=== PATIENT | female | born 1965 | race Hispanic/Latino ===

== ENCOUNTER 2019-11-14 18:54 | Inpatient (IN) | payer SELFPAY ==
[2019-11-14] MEDS ORDERED: DIPHENHYDRAMINE 50 MG/ML VIAL ONE (21:49)
[2019-11-14] MEDS ORDERED: NA CHLORIDE 0.9% 1,000 ML ONE (21:49)
[2019-11-14] MEDS ORDERED: FAMOTIDINE 20 MG/2 ML VIAL IV ONE (21:50)
[2019-11-14 23:25] LABS: Basophils % 0.2 % (0-1.3); Hematocrit 43.3 % (36.0-45.0); Lymphocytes % 19.5 % (15.3-44.8); MPV 8.6 fL (7.6-11.3); RBC Red Blood Cell Count 5.23 M/uL (3.86-4.86)
[2019-11-14] MEDS ORDERED: ONDANSETRON 4 MG/2 ML VIAL ONE (23:30)
[2019-11-14] MEDS ORDERED: MORPHINE 4 MG/ML SYR ONE (23:30)
[2019-11-14 23:40] LABS: ALT/SGPT 32 U/L (12-78); AST/SGOT 20 U/L (15-37); Albumin 3.7 g/dL (3.4-5.0); Alkaline Phosphatase 137 U/L (45-117); BUN Blood Urea Nitrogen 11 mg/dL (7-18); Bicarbonate 32 mmol/L (21-32); Bilirubin Total 0.4 mg/dL (0.2-1.0); Glucose Level 101 mg/dL (74-106); Potassium 3.8 mmol/L (3.5-5.1); Protein, Total 8.2 g/dL (6.4-8.2); Sodium Level 141 mmol/L (136-145)
[2019-11-15] MEDS ORDERED: ACETAMINOPHEN 500 MG TAB PO PRN (03:47)
[2019-11-15] MEDS ORDERED: ONDANSETRON 4 MG/2 ML VIAL IV PRN (03:47)
[2019-11-15] MEDS ORDERED: MORPHINE 2 MG/ML SYR IV PRN (03:47)
[2019-11-15] MEDS ORDERED: NA CHLORIDE 0.9% 250 ML ONE (03:58)
[2019-11-15] MEDS ORDERED: VANCOMYCIN 1 GM/VIAL ONE (03:58)
[2019-11-15] MEDS: D5 0.45 NS 1,000 ML IV SCH ×3 (04:00→15:04)
[2019-11-15] MEDS ORDERED: VANCOMYCIN/NS 1 gm 1 GM/250 ML BAG IVPB SCH (04:00)
[2019-11-15] MEDS ORDERED: SILVER SULFADIAZINE 1% 25 GM TOP ONE (04:29)
[2019-11-15 06:26] VITALS: BMI 25.6
--- NOTE | 2019-11-15 10:38 | ER ---
Nurse's Notes [facility] Name: Laura Mix Age: 54 yrs Sex: Female : 1965 Arrival Date: 11/14/2019 Time: 18:59 Bed 18 Private MD: Diagnosis: Cellulitis of the left thigh Presentation: 11/13 19:26 Note #[id number]. ca1 19:26 Chief complaint: Patient states: Rashes and hives around neck, back and legs since 0200 ca1 in the morning. Reports trouble swallowing. Denies difficulty breathing. Coronavirus screen: Proceed with normal triage. Patient denies a cough. Patient denies shortness of breath or difficulty breathing. Patient denies measured and/or subjective temperature greater than 100.4F prior to today's visit. Patient denies travel on a cruise ship or to a country the [facility] currently lists as an affected area. Patient denies contact with known and/or suspected case of COVID-19. Ebola Screen: Patient negative for fever greater than or equal to 101.5 degrees Fahrenheit, and additional compatible Ebola Virus Disease symptoms Patient denies exposure to infectious person. Patient denies travel to an Ebola-affected area in the 21 days before illness onset. No symptoms or risks identified at this time. Initial Sepsis Screen: Does the patient meet any 2 criteria? No. Patient's initial sepsis screen is negative. Does the patient have a suspected source of infection? No. Patient's initial sepsis screen is negative. Risk Assessment: Do you want to hurt yourself or someone else? Patient reports no desire to harm self or others. Onset of symptoms was November 14, 2019 at 02:00. 19:26 Method Of Arrival: Ambulatory ca1 19:26 Acuity: GAETANO 3 ca1 Historical: - Allergies: 19:31 No Known Allergies; ca1 - Home Meds: 19:31 None [Active]; ca1 - PMHx: 19:31 None; ca1 - PSHx: 19:31 Appendectomy; ca1 - Immunization history:: Adult Immunizations up to date. - Social history:: Smoking status: Patient denies any tobacco usage or history of. Screenin:35 Abuse screen: Denies threats or abuse. Nutritional screening: No deficits noted. ea Tuberculosis screening: No symptoms or risk factors identified. Fall Risk IV access (20 points). Assessment: 22:35 General: Appears uncomfortable, Behavior is appropriate for age. Pain: Complains of ea pain in medial aspect of left thigh. Neuro: Level of Consciousness is awake, alert, obeys commands, Oriented to person, place, time, situation. Respiratory: Airway is patent Respiratory effort is even, unlabored, Respiratory pattern is regular, symmetrical. Derm: Rash noted that is macular, on medial aspect of left thigh. 23:52 Reassessment: Patient and/or family updated on plan of care and expected duration. Pain ea level reassessed. Patient is alert, oriented x 3, equal unlabored respirations, skin warm/dry/pink. Pt reports pain has decreased. 11/14 02:30 Reassessment: Patient and/or family updated on plan of care and expected duration. Pain ea level reassessed. Patient is alert, oriented x 3, equal unlabored respirations, skin warm/dry/pink. 03:57 Reassessment: Patient and/or family updated on plan of care and expected duration. Pain ea level reassessed. Patient is alert, oriented x 3, equal unlabored respirations, skin warm/dry/pink. 04:25 General: Appears uncomfortable, Behavior is calm, cooperative, appropriate for age. jd3 Pain: Complains of pain in left leg. Neuro: Level of Consciousness is awake, alert, obeys commands, Oriented to person, place, time, situation. Cardiovascular: Denies chest pain, Capillary refill < 3 seconds Patient's skin is warm and dry. Respiratory: Airway is patent Respiratory effort is even, unlabored, Respiratory pattern is regular, symmetrical. Derm: Rash noted that is on left leg. 04:30 Reassessment: Patient and/or family updated on plan of care and expected duration. Pain jd3 level reassessed. Patient is alert, oriented x 3, equal unlabored respirations, skin warm/dry/pink. 05:30 Reassessment: Patient and/or family updated on plan of care and expected duration. Pain jd3 level reassessed. Patient is alert, oriented x 3, equal unlabored respirations, skin warm/dry/pink. report given to Grecia SANON. Vital Signs: 11/13 19:26 BP 153 / 82; Pulse 98; Resp 18 S; Temp 97(TE); Pulse Ox 100% on R/A; Weight 69.85 kg ca1 (R); Height 5 ft. 1 in. (154.94 cm) (R); Pain 4/10; 11/14 00:37 BP 122 / 53; Pulse 72; Resp 14; Pulse Ox 96% ; Pain 3/10; ls4 02:30 BP 115 / 50; Pulse 64; Resp 18; Pulse Ox 98% ; ea 03:30 BP 121 / 53; Pulse 60; Resp 18; Pulse Ox 97% on R/A; ea 04:02 BP 134 / 51; Pulse 62; Resp 18; Pulse Ox 98% ; ea 05:48 BP 132 / 54; Pulse 62; Resp 16 S; Pulse Ox 97% on R/A; jd3 11/13 19:26 Body Mass Index 29.10 (69.85 kg, 154.94 cm) ca1 ED Course: 11/13 18:59 Patient arrived in ED. mr 19:30 Triage completed. ca1 19:31 Arm band placed on right wrist. ca1 20:39 Aldo Elkins PA is PHCP. jmm 20:39 Salbador Sahu MD is Attending Physician. jmm 21:36 Apryl Ortega, TALITA is Primary Nurse. ea 22:18 Inserted saline lock: 20 gauge in right antecubital area, using aseptic technique. dh4 22:20 No apparent distress. ls4 22:20 Initial lab(s) drawn, by me, sent to lab. Patient maintains SpO2 saturation greater ls4 than 95% on room air. 22:30 Report given to Priscilla SANON. ea 22:36 Patient has correct armband on for positive identification. Bed in low position. Call ea light in reach. Side rails up X2. 11/14 00:39 No provider procedures requiring assistance completed. ls4 01:56 Lower Extremity W/ Cont In Process Unspecified. EDMS 03:44 Gerardo Berumen MD is Hospitalizing Provider. jmm 03:57 Patient admitted, IV remains in place. ea Administered Medications: 11/13 22:34 Drug: NS 0.9% 1000 ml Route: IV; Rate: 1 bolus; Site: right antecubital; ea 22:34 Drug: Pepcid 20 mg Route: IVP; Site: right antecubital; ea 23:53 Follow up: Response: No adverse reaction ea 22:34 Drug: diphenhydrAMINE 25 mg Route: IVP; Site: right antecubital; ea 23:53 Follow up: Response: No adverse reaction ea 23:30 Drug: Zofran (Ondansetron) 4 mg Route: IVP; Site: right antecubital; ea 23:53 Follow up: Response: No adverse reaction ea 23:30 Drug: morphine 4 mg Route: IVP; Site: right antecubital; ea 23:53 Follow up: Response: No adverse reaction; Pain is decreased; RASS: Alert and Calm (0) ea 23:43 CANCELLED (Other Intervention Used): morphine 4 mg Sub-Q once; RASS on ADMIN: Combtv4, ea Very Agttd3, Agttd2, Rstlss1, AlertClm0, Drwsy-1, Lt Sdtn-2, Mod Sdtn-3, Dp Sdtn-4, UnArsble-5 11/14 03:56 Drug: Cefepime 1 grams Route: IVPB; Rate: 200 ml/hr; Infused Over: 30 mins; Site: right ea antecubital; 04:30 Follow up: Response: No adverse reaction; IV Status: Completed infusion; IV Intake: jd3 100ml 04:27 Drug: Silvadene Cream 1 % 1 application Route: Topical; Site: wound; jd3 05:20 Follow up: Response: No adverse reaction jd3 04:43 Drug: vancoMYCIN 1 grams Route: IVPB; Infused Over: 2 hrs; Site: right antecubital; jd3 05:51 Follow up: Response: No adverse reaction; IV Status: Infusion continued upon admission jd3 Intake: 04:30 IV: 100ml; Total: 100ml. jd3 Outcome: 03:44 Decision to Hospitalize by Provider. mara 03:57 Instructed on the need for admit, Demonstrated understanding of instructions. ea 05:49 Admitted to Med/surg accompanied by tech, via stretcher, room 220, with chart, Report jd3 called to Bette SANON 05:49 Condition: stable 05:51 Patient left the ED. jd3 Signatures: Dispatcher [employer] EDMS Aldo Elkins PA PA jmm Rivera, Mary mr OrtegaApryl RN RN ea Davies, Jonathon, RN RN jd3 Stewart, Lisa, RN RN [facility] Giuliana Barroso RN RN ca1 Huhn, Donald dh Corrections: (The following items were deleted from the chart) 05:50 05:30 Reassessment: report given to Grecia SANON jd3 jd3
--- NOTE | 2019-11-15 10:38 | EDPHYS ---
Physician Documentation [facility] Name: Laura Mix Age: 54 yrs Sex: Female : 1965 Arrival Date: 11/14/2019 Time: 18:59 Bed 18 Private MD: ED Physician Salbador Sahu HPI: 11/13 20:45 This 54 yrs old Female presents to ER via Ambulatory with complaints of Rash. jmm 20:45 The patient's rash thought to be caused by an unknown cause. Onset: The jmm symptoms/episode began/occurred gradually, 2 week(s) ago. This is a 54 year old female with no chronic medical conditions that presents to the ED with complaints of diffuse rash to the trunk. Patient developed an abscess approx 2 week ago. Patient recently finished a course of clindamycin. Developed rash to the trunk and the left thigh today. . Historical: - Allergies: 19:31 No Known Allergies; ca1 - Home Meds: 19:31 None [Active]; ca1 - PMHx: 19:31 None; ca1 - PSHx: 19:31 Appendectomy; ca1 - Immunization history:: Adult Immunizations up to date. - Social history:: Smoking status: Patient denies any tobacco usage or history of. ROS: 20:45 Constitutional: Negative for fever, chills, and weight loss, Cardiovascular: Negative jmm for chest pain, palpitations, and edema, Respiratory: Negative for shortness of breath, cough, wheezing, and pleuritic chest pain. 20:45 Skin: Positive for rash. 20:45 All other systems are negative. Exam: 20:45 Constitutional: This is a well developed, well nourished patient who is awake, alert, jmm and in no acute distress. Head/Face: atraumatic. Eyes: EOMI, no conjunctival erythema appreciated ENT: Moist Mucus Membranes Neck: Trachea midline, Supple Chest/axilla: Normal chest wall appearance and motion. Cardiovascular: Regular rate and rhythm. No edema appreciated Respiratory: Normal respirations, no respiratory distress appreciated Abdomen/GI: Non distended, soft 20:45 Skin: diffuse rash noted to the trunk and the left leg, appears consistent with a drug eruption. . 20:45 Neuro: Orientation: is normal, Mentation: is normal, Memory: is normal. 20:45 Psych: Behavior/mood is pleasant, cooperative. Vital Signs: 19:26 BP 153 / 82; Pulse 98; Resp 18 S; Temp 97(TE); Pulse Ox 100% on R/A; Weight 69.85 kg ca1 (R); Height 5 ft. 1 in. (154.94 cm) (R); Pain 4/10; 11/14 00:37 BP 122 / 53; Pulse 72; Resp 14; Pulse Ox 96% ; Pain 3/10; ls4 02:30 BP 115 / 50; Pulse 64; Resp 18; Pulse Ox 98% ; ea 03:30 BP 121 / 53; Pulse 60; Resp 18; Pulse Ox 97% on R/A; ea 04:02 BP 134 / 51; Pulse 62; Resp 18; Pulse Ox 98% ; ea 05:48 BP 132 / 54; Pulse 62; Resp 16 S; Pulse Ox 97% on R/A; jd3 11/13 19:26 Body Mass Index 29.10 (69.85 kg, 154.94 cm) ca1 MDM: 11/13 20:45 Patient medically screened. [facility] 11/14 03:43 Data reviewed: vital signs, nurses notes. Counseling: I had a detailed discussion with mara the patient and/or guardian regarding: the historical points, exam findings, and any diagnostic results supporting the discharge/admit diagnosis, lab results, radiology results, the need for further work-up and treatment in the hospital. ED course: I discussed the patient with Dr. Berumen whom accepted admission. . 11/13 21:28 Order name: CBC with Diff [facility] 11/13 21:28 Order name: CMP [facility] 11/13 21:28 Order name: Procalcitonin [facility] 11/13 21:28 Order name: Blood Culture Adult (2) [facility] 11/13 21:28 Order name: Lactate [facility] 11/14 01:06 Order name: CBC with Automated Diff; Complete Time: 01:15 [facility] 11/14 01:06 Order name: Comprehensive Metabolic Panel; Complete Time: 01:15 [facility] 11/14 01:06 Order name: Procalcitonin; Complete Time: 01:15 [facility] 11/14 01:06 Order name: Lactate; Complete Time: 01:15 [facility] 11/14 01:56 Order name: Blood Culture [facility] 11/14 01:56 Order name: Blood Culture [facility] 11/14 03:50 Order name: Basic Metabolic Panel EDMS 11/14 03:50 Order name: Basic Metabolic Panel EDMS 11/14 03:50 Order name: CBC with Automated Diff EDMS 11/13 21:28 Order name: Saline Lock; Complete Time: 22:35 [facility] 11/14 01:46 Order name: Lower Extremity W/ Cont EDMS 11/14 03:50 Order name: CONS Pharmacy Consult EDMS 11/14 03:50 Order name: NPO EDMS 11/14 03:50 Order name: CBC with Automated Diff EDMS 11/14 04:34 Order name: CREATININE WHOLE BLOOD EDMS Administered Medications: 11/13 22:34 Drug: NS 0.9% 1000 ml Route: IV; Rate: 1 bolus; Site: right antecubital; ea 22:34 Drug: Pepcid 20 mg Route: IVP; Site: right antecubital; ea 23:53 Follow up: Response: No adverse reaction ea 22:34 Drug: diphenhydrAMINE 25 mg Route: IVP; Site: right antecubital; ea 23:53 Follow up: Response: No adverse reaction ea 23:30 Drug: Zofran (Ondansetron) 4 mg Route: IVP; Site: right antecubital; ea 23:53 Follow up: Response: No adverse reaction ea 23:30 Drug: morphine 4 mg Route: IVP; Site: right antecubital; ea 23:53 Follow up: Response: No adverse reaction; Pain is decreased; RASS: Alert and Calm (0) ea 23:43 CANCELLED (Other Intervention Used): morphine 4 mg Sub-Q once; RASS on ADMIN: Combtv4, ea Very Agttd3, Agttd2, Rstlss1, AlertClm0, Drwsy-1, Lt Sdtn-2, Mod Sdtn-3, Dp Sdtn-4, UnArsble-5 11/14 03:56 Drug: Cefepime 1 grams Route: IVPB; Rate: 200 ml/hr; Infused Over: 30 mins; Site: right ea antecubital; 04:30 Follow up: Response: No adverse reaction; IV Status: Completed infusion; IV Intake: jd3 100ml 04:27 Drug: Silvadene Cream 1 % 1 application Route: Topical; Site: wound; jd3 05:20 Follow up: Response: No adverse reaction jd3 04:43 Drug: vancoMYCIN 1 grams Route: IVPB; Infused Over: 2 hrs; Site: right antecubital; jd3 05:51 Follow up: Response: No adverse reaction; IV Status: Infusion continued upon admission jd3 Disposition: 06:19 Co-signature as Attending Physician, Salbador Sahu MD I agree with the assessment and dale plan of care. Disposition: 11/15/19 03:44 Hospitalization ordered by Gerardo Berumen for Observation. Preliminary diagnosis is Cellulitis of the left thigh. - Bed requested for Telemetry/MedSurg (observation). - Status is Observation. jd3 - Condition is Stable. - Problem is new. - Symptoms are unchanged. Signatures: Dispatcher [employer] EDSalbador Agosto MD MD cha Mickail, Joel, PA PA jmm Lasagna, Tonya, RN RN tl1 Apryl Ortega RN RN ea Davies, Jonathon, RN RN jd3 Giuliana Barroso RN RN ca1 Corrections: (The following items were deleted from the chart) 11/13 23:43 23:12 morphine 4 mg Sub-Q once; RASS on ADMIN: Combtv4, Very Agttd3, Agttd2, Rstlss1, ea AlertClm0, Drwsy-1, Lt Sdtn-2, Mod Sdtn-3, Dp Sdtn-4, UnArsble-5 ordered. 23:43 23:43 morphine 4 mg Sub-Q once; RASS on ADMIN: Combtv4, Very Agttd3, Agttd2, Rstlss1, ea AlertClm0, Drwsy-1, Lt Sdtn-2, Mod Sdtn-3, Dp Sdtn-4, UnArsble-5 ordered. ea 11/14 04:02 03:44 Hospitalization Ordered by Gerardo Berumen MD for Observation. Preliminary tl1 diagnosis is Cellulitis of the left thigh. Bed requested for Telemetry/MedSurg (observation). Status is Observation. Condition is Stable. Problem is new. Symptoms are unchanged. [facility] 04:03 04:02 11/15/2019 03:44 Hospitalization Ordered by Gerardo Berumen MD for Observation. tl1 Preliminary diagnosis is Cellulitis of the left thigh. Bed requested for Telemetry/MedSurg (observation). Status is Observation. Condition is Stable. Problem is new. Symptoms are unchanged. tl1 05:51 04:03 11/15/2019 03:44 Hospitalization Ordered by Gerardo Berumen MD for Observation. jd3 Preliminary diagnosis is Cellulitis of the left thigh. Bed requested for Telemetry/MedSurg (observation). Status is Observation. Condition is Stable. Problem is new. Symptoms are unchanged. tl1
[2019-11-15] MEDS: DIPHENHYDRAMINE 25 MG TAB/CAP PO PRN ×2 (12:04→20:32)
--- NOTE | 2019-11-15 13:30 | P.HP ---
Date of Service: 11/15/19 PC: I was asked to admit this 54-year-old female who came to the emergency room complaining of left thigh pain. HPC: Patient apparently had undergone an incision, drainage, and debridement of an abscess at another facility. She had been [facility]. [facility] area of cellulitis around her surgical incision. PMH: Negative PSHx: Previous appendectomy SOC: No known allergies SYS REVIEW: No cough, wheeze, shortness of breath. No chest pain or palpitations. Now just has a lot of itchiness around her back , neck , and thigh O/E awake alert stable HEENT: Rash on the anterior portion of her neck Chest: Chest movement equal bilaterally, rash of the upper portion of his chest ABD: Diffuse rash across her abdomen which is otherwise soft nontender LOCO: Has a rash around a surgical incision that is located in the mid thigh. There is a pen indu that was most likely placed the nurse last night ER and a shows that there is some to meet you should any size. DATA: CT scan results not on the chart IMPRESSION: Allergic reaction most likely the antibiotics PLAN: This patient was admitted under my service with the assumption that the patient has cellulitis of her left thigh a around the surgical incision that had been done in a clinic elsewhere. He detached a most likely has a systemic rash a response to antibiotics that she is on. I will console my hospitalist colleagues.
--- NOTE | 2019-11-15 13:56 | RAD REPORT ---
EXAM DESCRIPTION: CT Lower Extremity W/ Cont CLINICAL HISTORY: 54 years Female R/O MASS ON THIGH TECHNIQUE: Axial images acquired through the left hemipelvis and femur after the administration of i ntravenous contrast. Coronal and sagittal reformatted images also provided. This CT exam was performed according to our departmental dose-optimization program, which includes on e or more of the following dose reduction techniques: automated exposure control, adjustment of the m A and/or kV according to patient size, and/or use of iterative reconstruction technique. COMPARISON: No prior exams provided for comparison. FINDINGS: There is diffuse skin thickening and stranding of the subcutaneous fat consistent with leighann lulitis anterior to the left proximal thigh, medial to the left mid thigh, and posterior to the left distal thigh. In the subcutaneous fat anteromedial to the left thigh approximately 8 cm caudal to the pubic symphys is, there is a single focus of gas with trace adjacent fluid. There is no visualized drainable fluid collection. There is no other soft tissue gas. Reactive left inguinal lymph nodes. No intramuscular or vascular abnormality. No acute fracture, disl ocation, or aggressive osseous lesion. 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 No lef t hip or left knee joint effusion. No acute intrapelvic abnormality. Sigmoid diverticulosis. IMPRESSION: Left thigh cellulitis with a single focus of subcutaneous gas. No drainable fluid collec tion. Reactive left inguinal lymph nodes. No intramuscular or osseous abnormality. Electronically signed by: Ester Nuñez MD 11/15/2019 1:38 AM CDT Due to temporary technical issues with the PACS/Fluency reporting system, reports are being signed by the in house radiologist without review as a courtesy to ensure prompt reporting. The interpreting r adiologist is fully responsible for the content of the report.
[2019-11-15] MEDS ORDERED: METHYLPREDNISOLONE 125 MG INJ IV ONE (14:37)
[2019-11-15] MEDS ORDERED: VANCOMYCIN 1.25 GM in NA CHLORIDE 0.9% 250 ML IVPB SCH ×2 (15:00→16:00)
--- NOTE | 2019-11-15 15:12 | P.CNS ---
Date of Consult: 11/15/19 Reason for Consult: rash Primary Care Provider: none Chief Complaint: lower ext cellulitis, rash History of Present Illness: Should be noted that the patient is primarily Vietnamese-speaking but does understand some Czech. daughter at the bedside preferred to be the rounding machine tender. Professional rounding machine tender services were offered. Patient is a 54-year-old female with no significant past medical history developed an lesion on her left thigh went to outside facility and lesion was lanced. Patient was given oral antibiotics clindamycin. Patient developed a rash the day after she started the oral antibiotics. Came in for further evalu ation. Patient's symptoms are constant moderate progressively worsening. Patient has been given dose of Benadryl skin rash. Received a dose of vancomycin in the ER for the cellulitis. Wound culture has been obtained. When seen in the room she was awake alert oriented x3 in some mild distress. Allergies clindamycin Allergy (Verified 11/15/19 14:23) Hives/Rash Home medications list reviewed: Yes Home Medications: NK [No Home Meds] 11/15/19 - Past Medical/Surgical History Diabetic: No Past Medical History: Patient denies medical history -: appy - Family History Father Family History: Reviewed- Non-Contributory Notes: denies any family hx of DM2 or heart disease - Social History Smoking Status: Never smoker Alcohol use: No CD- Drugs: No Caffeine use: Yes Place of Residence: Home Review of Systems 10-point ROS is otherwise unremarkable Integumentary: As per HPI Physical Examination Temp Pulse Resp BP Pulse Ox 97.6 F 66 16 124/53 L 97 11/15/19 11:41 11/15/19 11:41 11/15/19 11:41 11/15/19 11:41 11/15/19 11:41 General: Alert, Oriented x3, Mild distress, Other (ill appearing female ) HEENT: Atraumatic, PERRLA, EOMI, Sclerae nonicteric Neck: Supple, JVD not distended Respiratory: Clear to auscultation bilaterally, Normal air movement, Other (no stridor or use of accessory muscles) Cardiovascular: No edema, Normal pulses, Regular rate/rhythm, Normal S1 S2 Gastrointestinal: Normal bowel sounds, Soft and benign, Non-distended, No tenderness Musculoskeletal: No clubbing, No tenderness Integumentary: Rash(es) (diffuse papular rash on back, neck and left lower ext, hives), Skin lesion (left thigh ulcer no drainage), Erythema Neurological: Normal gait, Normal speech, Normal tone, Normal affect Lymphatics: No axilla or inguinal lymphadenopathy Laboratory Data (last 24 hrs) 11/14/19 22:50: Sodium 141, Potassium 3.8, BUN 11, Creatinine 0.67, Glucose 101, Total Bilirubin 0.4, AST 20, ALT 32, Alkaline Phosphatase 137 H 11/14/19 22:50: WBC 10.1, Hgb 14.8, Hct 43.3, Plt Count 411 H 11/14/19 21:28: Sodium Cancelled, Potassium Cancelled, BUN Cancelled, Creatinine Cancelled, Glucose Cancelled, Total Bilirubin Cancelled, AST Cancelled, ALT Cancelled, Alkaline Phosphatase Cancelled 11/14/19 21:28: WBC Cancelled, Hgb Cancelled, Hct Cancelled, Plt Count Cancelled Imagings Data: thigh cellulitis with a single focus of subcutaneous gas. No drainable fluid collection. Reactive left inguinal lymph nodes. No intramuscular or osseous abnormality. - Problems (1) Cellulitis of left lower extremity Current Visit: Yes Status: Acute (2) Rash Current Visit: Yes Status: Acute (3) Diverticulosis Current Visit: Yes Status: Acute Conclusions/Impression: Rash likely secondary to clindamycin Solu-Medrol 125 mg IV x1 Add ranitidine for H2 blocking effect Benadryl p.r.n. add vancomycin and gram-negative coverage with cefepime Consult infectious disease Add clindamycin to allergy list Will discuss with Dr. Berumen regarding plans for possible surgical intervention. CT scan shows a single focus of subcutaneous gas CBC CMP in a.m. Thank you for the opportunity to assist in your patient's care. Will follow along with you.
[2019-11-15] MEDS ORDERED: FAMOTIDINE 20 MG/2 ML VIAL IV ONE (17:00)
[2019-11-15] MEDS: VANCOMYCIN 1.25 GM in NA CHLORIDE 0.9% 250 ML IVPB SCH (17:21)
[2019-11-15] MEDS: CEFEPIME/SWI 2gm 2 GM/20 ML SYR IVP SCH (17:21)
--- NOTE | 2019-11-15 18:04 | P.CNS ---
Date of Consult: 11/15/19 Subjective: Patient is a 54-year-old female who presents to the ER with rash. Patient developed an abscess approximately 2 weeks ago to medial left thigh and underwent an I&D at an outpatient clinic. Patient was given Clindamycin and developed a rash. Patient found to have cellulitis to left medical thigh which I have been consulted for. Patient examined at bedside. Past medical history: Denies Past surgical history: Appendectomy Social history: Denies tobacco and alcohol use Family history: noncontributory Allergies: Clindamycin Active Medications Acetaminophen (Tylenol -Extra Strength) 500 mg PO Q6H PRN PRN Reason: Pain scale 2-4 (Mild) Stop: 12/15/19 03:48 Last Admin: 11/15/19 10:46 Dose: 500 mg Documented by: Diphenhydramine HCl (Benadryl Tab/Cap) 25 mg PO Q6H PRN PRN Reason: ITCHING Stop: 12/15/19 11:56 Last Admin: 11/15/19 12:04 Dose: 25 mg Documented by: Diphenhydramine HCl (Benadryl Inj) 25 mg IV Q6H PRN PRN Reason: ITCHING Stop: 12/15/19 14:19 Dextrose/Sodium Chloride (Dextrose 5% O.45% Saline) 1,000 mls @ 100 mls/hr IV .Q10H [place]O Stop: 12/15/19 04:01 Last Admin: 11/15/19 15:04 Dose: 1,000 mls Documented by: Vancomycin HCl 1.25 gm/ Sodium (Chloride) 250 mls @ 150 mls/hr IVPB Q12H [place]O Stop: 12/15/19 17:01 Last Admin: 11/15/19 17:21 Dose: 250 mls Documented by: Cefepime HCl (Maxipime 2 Gm/20 Ml Swi Ivp) 2 gm in 20 mls @ 240 mls/hr IVP Q12HR [place]O Stop: 12/15/19 17:01 Last Admin: 11/15/19 17:21 Dose: 20 mls Documented by: Morphine Sulfate (Morphine Sulfate) 2 mg IV Q4H PRN PRN Reason: Pain scale 5-7 (Moderate) Stop: 12/15/19 03:48 Ondansetron HCl (Zofran) 4 mg IV Q4H PRN PRN Reason: NAUSEA / VOMITING Sodium Chloride (Normal Saline Flush) 10 ml IV BID CH[facility]O Stop: 12/15/19 09:01 Last Admin: 11/15/19 10:46 Dose: 10 ml Documented by: ROS: CV: Denies chest pain RESP: denies shortness of breath, cough : denies dysuria GI: denies nausea, diarrhea Skin: Reports rash Objective: Temp Pulse Resp BP Pulse Ox 98.1 F 78 16 108/47 L 99 11/15/19 16:00 11/15/19 16:00 11/15/19 16:00 11/15/19 16:00 11/15/19 16:00 Laboratory Data (last 24 hrs) 11/14/19 22:50: Sodium 141, Potassium 3.8, BUN 11, Creatinine 0.67, Glucose 101, Total Bilirubin 0.4, AST 20, ALT 32, Alkaline Phosphatase 137 H 11/14/19 22:50: WBC 10.1, Hgb 14.8, Hct 43.3, Plt Count 411 H 11/14/19 21:28: Sodium Cancelled, Potassium Cancelled, BUN Cancelled, Creatinine Cancelled, Glucose Cancelled, Total Bilirubin Cancelled, AST Cancelled, ALT Cancelled, Alkaline Phosphatase Cancelled 11/14/19 21:28: WBC Cancelled, Hgb Cancelled, Hct Cancelled, Plt Count Cancelled Lower extremity CT 11/13: EXAM DESCRIPTION: CT Lower Extremity W/ Cont CLINICAL HISTORY: 54 years Female R/O MASS ON THIGH TECHNIQUE: Axial images acquired through the left hemipelvis and femur after the administration of intravenous contrast. Coronal and sagittal reformatted images also provided. This CT exam was performed according to our departmental dose-optimization program, which includes one or more of the following dose reduction techniques: automated exposure control, adjustment of the mA and/or kV according to patient size, and/or use of iterative reconstruction technique. COMPARISON: No prior exams provided for comparison. FINDINGS: There is diffuse skin thickening and stranding of the subcutaneous fat consistent with cellulitis anterior to the left proximal thigh, medial to the left mid thigh, and posterior to the left distal thigh. In the subcutaneous fat anteromedial to the left thigh approximately 8 cm caudal to the pubic symphysis, there is a single focus of gas with trace adjacent fluid. There is no visualized drainable fluid collection. There is no other soft tissue gas. Reactive left inguinal lymph nodes. No intramuscular or vascular abnormality. No acute fracture, dislocation, or aggressive osseous lesion. 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 No left hip or left knee joint effusion. No acute intrapelvic abnormality. Sigmoid diverticulosis. IMPRESSION: Left thigh cellulitis with a single focus of subcutaneous gas. No drainable fluid collection. Reactive left inguinal lymph nodes. No intramuscular or osseous abnormality. Electronically signed by: Ester Nuñez MD 11/15/2019 1:38 AM CDT Due to temporary technical issues with the PACS/Fluency reporting system, reports are being signed by the in house radiologist without review as a courtesy to ensure prompt reporting. The interpreting radiologist is fully responsible for the content of the report. ROS: General: Awake, alert CV: S1, S2 RESP: good breath sounds, room air ABD: Nontender, bowel sounds present Extremities: No edema Skin: Extensive erythematous raised rash along neck, extremities and back. Left medial thigh with erythema, warmth and small opening s/p I&D, wound bed with granulation tissue Assessment and plan: Left leg cellulitis Rash, possible reaction to clindamycin although eosinophils are negative No leukocytosis, afebrile Wound and blood cultures pending Procalcitonin negative Currently on Maxipime day 1 and Vancomycin day 1 Patient will need total of two weeks of antibiotics Will continue to monitor Thank you for consult Patient discussed with Dr. Rowan
[2019-11-15] MEDS ORDERED: VANCOMYCIN 0 GM in NA CHLORIDE 0.9% 500 ML IVPB SCH (21:00)
[2019-11-15] MEDS ORDERED: RANITIDINE 150 MG TABLET PO SCH (21:00)
[2019-11-15] MEDS ORDERED: CEFEPIME 2 GM VIAL IV SCH (21:00)
[2019-11-15] MEDS: DIPHENHYDRAMINE 50 MG/ML VIAL IV PRN (22:19)
[2019-11-16] MEDS: D5 0.45 NS 1,000 ML IV SCH ×2 (03:08→10:00)
[2019-11-16] MEDS: DIPHENHYDRAMINE 25 MG TAB/CAP PO PRN (03:08)
[2019-11-16] MEDS: DIPHENHYDRAMINE 50 MG/ML VIAL IV PRN ×2 (05:13→11:52)
[2019-11-16 05:19] LABS: Absolute Lymphocytes (CBC) 0.9 K/uL (0.7-4.9); Basophils % 0.6 % (0-1.3); Hematocrit 38.8 % (36.0-45.0); Lymphocytes % 8.7 % (15.3-44.8); MPV 8.4 fL (7.6-11.3); RBC Red Blood Cell Count 4.65 M/uL (3.86-4.86)
[2019-11-16 05:43] LABS: ALT/SGPT 26 U/L (12-78); AST/SGOT 15 U/L (15-37); Albumin 3.2 g/dL (3.4-5.0); Alkaline Phosphatase 114 U/L (45-117); BUN Blood Urea Nitrogen 9 mg/dL (7-18); Bicarbonate 29 mmol/L (21-32); Bilirubin Total 0.3 mg/dL (0.2-1.0); Glucose Level 155 mg/dL (74-106); Potassium 3.8 mmol/L (3.5-5.1); Protein, Total 7.2 g/dL (6.4-8.2); Sodium Level 140 mmol/L (136-145)
[2019-11-16 07:23] LABS: Blood Morphology Comment NOT SEEN (NOT SEEN); Platelet Estimate ADEQ
[2019-11-16] MEDS: VANCOMYCIN 1.25 GM in NA CHLORIDE 0.9% 250 ML IVPB SCH (07:23)
[2019-11-16 08:07] VITALS: O2SAT 93
[2019-11-16] MEDS: CEFEPIME/SWI 2gm 2 GM/20 ML SYR IVP SCH (08:29)
--- NOTE | 2019-11-16 13:19 | P.PN ---
Date of Service: 11/16/19 S: Patient indicates she is much more comfortable than she was yesterday. Rash seems to much improved. O: Her left upper thigh wound looks the same, there is minimal induration and no fluctuance detected in that area. The surrounding erythematous type rash is markedly improved since yesterday. A: Continues to improve P: She has does not require any other surgical intervention and tower abscess a left upper thigh. From a surgical point of view she may be discharged. She is free to see me either next week in my office, at the [facility], or with her own family doctor. This was explained to her and to her daughter on the telephone.
--- NOTE | 2019-11-16 15:55 | P.DS ---
Admission Date: 11/15/19 Discharge Date: 11/16/19 Primary Care Provider: none Disposition: ROUTINE DISCHARGE Discharge Condition: GOOD Reason for Admission: lower ext cellulitis, rash Consultations: Dr. Berumen surgery Procedures: none - Problems (1) Cellulitis of left lower extremity Current Visit: Yes Status: Acute (2) Rash Current Visit: Yes Status: Acute (3) Diverticulosis Current Visit: Yes Status: Acute Brief History of Present Illness: Should be noted that the patient is primarily Congolese-speaking but does understand some Finnish. daughter at the bedside preferred to be the investor. Professional investor services were offered. Patient is a 54-year-old female with no significant past medical history developed an lesion on her left thigh went to outside facility and lesion was lanced. Patient was given oral antibiotics clindamycin. Patient developed a rash the day after she started the oral antibiotics. Came in for further evaluation. Patient's symptoms are constant moderate progressively worsening. Patient has been given dose of Benadryl skin rash. Received a dose of vancomycin in the ER for the cellulitis. Wound culture has been obtained. When seen in the room she was awake alert oriented x3 in some mild distress. Hospital Course: Patient is a 54-year-old female with no significant past medical history admitted by Dr. Berumen and hospitalist service was consulted. Patient developed a lesion on her left thigh went to outside facility and lesion was lanced. Patient was given oral antibiotics clindamycin. Patient developed a rash the day after she started the oral antibiotics. She was given benadryl, solu medrol and pepcid. Rash improved. She received IV abx and cultures were obtained - negative to date. Patients condition improved. No surgical intervention planned. Patients WBC normal, no fever, no signs of sepsis. Patient was cleared by Dr. Berumen who recommended discharge. Patient was sent home on oral abx in a stable condition Vital Signs/Physical Exam: Temp Pulse Resp BP Pulse Ox 97.7 F 81 19 148/64 H 100 11/16/19 12:00 11/16/19 12:00 11/16/19 12:00 11/16/19 12:00 11/16/19 12:00 General: Alert, In no apparent distress, Oriented x3 HEENT: Atraumatic, PERRLA, EOMI Neck: Supple, JVD not distended Respiratory: Clear to auscultation bilaterally, Normal air movement Cardiovascular: No edema, Normal pulses, Regular rate/rhythm, Normal S1 S2 Gastrointestinal: Normal bowel sounds, Soft and benign, Non-distended, No tenderness Musculoskeletal: No tenderness Integumentary: Rash(es) (improving), Skin lesion (left thigh ulceration, no drainiage) Neurological: Normal speech, Normal strength at 5/5 x4 extr, Normal tone, Cranial nerves 3-12 intact, Normal affect Laboratory Data at Discharge: WBC 10.2 K/uL (4.3-10.9) 11/16/19 05:02 Hgb 13.3 g/dL (12.0-15.0) 11/16/19 05:02 Hct 38.8 % (36.0-45.0) 11/16/19 05:02 Plt Count 350 K/uL (152-406) 11/16/19 05:02 Sodium 140 mmol/L (136-145) 11/16/19 05:02 Potassium 3.8 mmol/L (3.5-5.1) 11/16/19 05:02 BUN 9 mg/dL (7-18) 11/16/19 05:02 Creatinine 0.61 mg/dL (0.55-1.3) 11/16/19 05:02 Glucose 155 mg/dL (74-106) H 11/16/19 05:02 Total Bilirubin 0.3 mg/dL (0.2-1.0) 11/16/19 05:02 AST 15 U/L (15-37) 11/16/19 05:02 ALT 26 U/L (12-78) 11/16/19 05:02 Alkaline Phosphatase 114 U/L (45-117) 11/16/19 05:02 Home Medications: Doxycycline Hyclate 100 mg PO BID #24 tablet 11/16/19 New Medications: Doxycycline Hyclate 100 mg PO BID #24 tablet Patient Discharge Instructions: f/up w PCP in 2-3 days. f/up w Dr. Berumen surgeon in 1 week for wound check. f/up w ID Dr. Rowan in 2 weeks. Return to ER for worsening condition Diet: Regular Activity: Ad bertram Time spent managing pt's care (in minutes): 35
--- NOTE | 2019-11-16 16:02 | P.PN ---
Date of Service: 11/16/19 Subjective: Patient is a 54-year-old female who presents to the ER with rash. Patient developed an abscess approximately 2 weeks ago to medial left thigh and underwent an I&D at an outpatient clinic. Patient was given Clindamycin and developed a rash. Patient found to have cellulitis to left medical thigh which I have been consulted for. Patient examined at bedside. Denies nausea, diarrhea, fevers. Patient is ambulatory around the room Objective: Temp Pulse Resp BP Pulse Ox 97.7 F 81 19 148/64 H 100 11/16/19 12:00 11/16/19 12:00 11/16/19 12:00 11/16/19 12:00 11/16/19 12:00 Labs: Sodium 140, potassium 3.8, BUN 9, creatinine 0.61, albumin 3.2, WBC 10.2, hematocrit 38.8, hemoglobin 13.[address] 11/13: EXAM DESCRIPTION: CT Lower Extremity W/ Cont CLINICAL HISTORY: 54 years Female R/O MASS ON THIGH TECHNIQUE: Axial images acquired through the left hemipelvis and femur after the administration of intravenous contrast. Coronal and sagittal reformatted images also provided. This CT exam was performed according to our departmental dose-optimization pr ogram, which includes one or more of the following dose reduction techniques: automated exposure control, adjustment of the mA and/or kV according to patient size, and/or use of iterative reconstruction technique. COMPARISON: No prior exams provided for comparison. FINDINGS: There is diffuse skin thickening and stranding of the subcutaneous fat consistent with cellulitis anterior to the left proximal thigh, medial to the left mid thigh, and posterior to the left distal thigh. In the subcutaneous fat anteromedial to the left thigh approximately 8 cm caudal to the pubic symphysis, there is a single focus of gas with trace adjacent fluid. There is no visualized drainable fluid collection. There is no other soft tissue gas. Reactive left inguinal lymph nodes. No intramuscular or vascular abnormality. No acute fracture, dislocation, or aggressive osseous lesion. 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 No left hip or left knee joint effusion. No acute intrapelvic abnormality. Sigmoid diverticulosis. IMPRESSION: Left thigh cellulitis with a single focus of subcutaneous gas. No drainable fluid collection. Reactive left inguinal lymph nodes. No intramuscular or osseous abnormality. Electronically signed by: Ester Nuñez MD 11/15/2019 1:38 AM CDT Due to temporary technical issues with the PACS/Fluency reporting system, reports are being signed by the in house radiologist without review as a courtesy to ensure prompt reporting. The interpreting radiologist is fully responsible for the content of the report. ROS: General: Awake, alert CV: S1, S2 RESP: good breath sounds, room air ABD: Nontender, bowel sounds present Extremities: No edema Skin: Extensive erythematous raised rash along neck, extremities and back. Left medial thigh with erythema, warmth and small opening s/p I&D, wound bed with granulation tissue. Salome area with large area of hardening Assessment and plan: Left leg cellulitis Rash, possible reaction to clindamycin although eosinophils are negative No leukocytosis, afebrile Wound cultures show no growth to date Blood cultures show no growth to date Procalcitonin negative Currently on Maxipime day 2 and Vancomycin day 2 From ID standpoint, recommend IV Vancomycin for total of 2 weeks Will continue to monitor Patient discussed with Dr. Rowan
[2019-11-16 16:41] VITALS: BP 167/69; TEMP 98.7
== END 2019-11-16 16:52 | disposition home or self-care (01) | DRG 603 ==
LOC: ER 18:54 → 2ND 11-15 05:31 → OBSVTOIN 11-15 13:03
PROVIDERS: ADMIT Surgery; ATTEND Surgery
DX: L03.116 Cellulitis of left lower limb (principal); K57.90 Diverticulosis of intestine, part unspecified, without perforation or abscess without bleeding; R21 Rash and other nonspecific skin eruption; T36.8X5A Adverse effect of other systemic antibiotics, initial encounter; Z90.49 Acquired absence of other specified parts of digestive tract; Z11.59 Encounter for screening for other viral diseases; Z88.1 Allergy status to other antibiotic agents
CPT/HCPCS: 36415; 73701; 80053; 82565; 83605; 84145; 85025; 87040; 87070; 87075; 87077; 87186; 87205; 96365; 96367; 96375; 99285; G0378; J0692; J1200; J2405; J2930; J7030; J7799; Q9967; U0002

== ENCOUNTER 2021-02-02 01:34 | Emergency (ER) | payer SELFPAY ==
--- OUTSIDE RECORDS SUMMARY | 2021-02-02 01:36 | XMS REPORT | Continuity of Care Document ---
:1965 Author Organization [facility] t Address [address] [place] [address] Dr. Sabillon [address] [place] [id number] Care Team Providers Name Role Phone Unavailable Unavailable Unavailable Problems This patient has no known problems. Allergies, Adverse Reactions, Alerts This patient has no known allergies or adverse reactions. Medications This patient has no known medications. Procedures This patient has no known procedures. Results This patient has no known results.
[2021-02-02] MEDS ORDERED: ATROPINE SULF 1 MG/10 ML SYR IV ONE (03:28)
[2021-02-02 03:30] LABS: Absolute Lymphocytes (CBC) 2.9 K/uL (0.7-4.9); Basophils % 0.8 % (0-1.3); Hematocrit 40.6 % (36.0-45.0); Lymphocytes % 29.9 % (15.3-44.8); MPV 10.3 fL (7.6-11.3); RBC Red Blood Cell Count 4.77 M/uL (3.86-4.86)
[2021-02-02 03:32] LABS: Protime INR 1.15
[2021-02-02 03:49] LABS: ALT/SGPT 125 U/L (12-78); AST/SGOT 53 U/L (15-37); Albumin 3.8 g/dL (3.4-5.0); Alkaline Phosphatase 182 U/L (45-117); BUN Blood Urea Nitrogen 17 mg/dL (7-18); Bicarbonate 28 mmol/L (21-32); Bilirubin Direct 0.2 mg/dL (0-0.2); Bilirubin Total 0.6 mg/dL (0.2-1.0); Glucose Level 118 mg/dL (74-106); Lipase 90 U/L (73-393); Magnesium 2.6 mg/dL (1.8-2.4); NT PRO-BNP 2232 pg/mL (<125); Potassium 3.8 mmol/L (3.5-5.1); Protein, Total 7.5 g/dL (6.4-8.2); Sodium Level 142 mmol/L (136-145); Troponin (Emerg Dept Use Only) < 0.02 ng/mL (0.0-0.045)
--- NOTE | 2021-02-02 06:48 | EDPHYS ---
Physician Documentation [facility] Name: Laura Mix Age: 55 yrs Sex: Female : 1965 Arrival Date: 02/02/2021 Time: 01:35 Bed 5 Private MD: ED Physician Nolan Medrano HPI: 02/02 04:38 This 55 yrs old Female presents to ER via Wheelchair with complaints of Flank tw4 Pain. 04:38 The patient complains of pain in the left low back and right low back. The pain does tw4 not radiate. Onset: The symptoms/episode began/occurred today. Modifying factors: The symptoms are alleviated by nothing. the symptoms are aggravated by nothing. Severity of pain: At its worst the pain was moderate in the emergency department the pain is unchanged. The patient has not experienced similar symptoms in the past. Historical: - Allergies: 02:35 PENICILLINS; em - PMHx: 02:35 None; em - PSHx: 02:35 Appendectomy; em - Immunization history:: Adult Immunizations up to date, Client reports receiving the 2nd dose of the Covid vaccine. - Social history:: Smoking status: Patient denies any tobacco usage or history of. ROS: 04:38 Constitutional: Negative for fever, chills, and weight loss, Eyes: Negative for injury, tw4 pain, redness, and discharge, Cardiovascular: Negative for chest pain, palpitations, and edema, Respiratory: Negative for shortness of breath, cough, wheezing, and pleuritic chest pain, Back: Negative for injury and pain, MS/Extremity: Negative for injury and deformity, Skin: Negative for injury, rash, and discoloration, Neuro: Negative for headache, weakness, numbness, tingling, and seizure. 04:38 Abdomen/GI: Positive for abdominal pain, Negative for nausea and vomiting, nausea, vomiting, and diarrhea, nausea. Exam: 04:38 Constitutional: This is a well developed, well nourished patient who is awake, alert, tw4 and in no acute distress. Head/Face: Normocephalic, atraumatic. 04:38 Chest/axilla: Normal chest wall appearance and motion. Nontender with no deformity. tw4 No lesions are appreciated. Cardiovascular: Regular rate and rhythm with a normal S1 and S2. No gallops, murmurs, or rubs. Normal PMI, no JVD. No pulse deficits. Respiratory: Lungs have equal breath sounds bilaterally, clear to auscultation and percussion. No rales, rhonchi or wheezes noted. No increased work of breathing, no retractions or nasal flaring. Abdomen/GI: Soft, non-tender, with normal bowel sounds. No distension or tympany. No guarding or rebound. No evidence of tenderness throughout. Back: No spinal tenderness. No costovertebral tenderness. Full range of motion. MS/ Extremity: Pulses equal, no cyanosis. Neurovascular intact. Full, normal range of motion. Neuro: Awake and alert, GCS 15, oriented to person, place, time, and situation. Cranial nerves II-XII grossly intact. Motor strength 5/5 in all extremities. Sensory grossly intact. Cerebellar exam normal. Normal gait. Vital Signs: 02:33 BP 120 / 64; Pulse 30; Resp 18; Temp 98.0; Pulse Ox 99% on R/A; em 02:44 Weight 74.21 kg (M); em 03:30 BP 199 / 68; Pulse 32; Resp 16; Pulse Ox 97% ; ea 04:00 BP 191 / 48; Pulse 32; Resp 17; Pulse Ox 99% ; ea 06:47 BP 152 / 50; Pulse 98; Resp 17; Pulse Ox 98% ; ea 07:30 BP 192 / 63; Pulse 44; Resp 14; Pulse Ox 100% ; Pain 0/10; jl7 08:45 BP 196 / 56; Pulse 34; Resp 14; Pulse Ox 100% ; jl7 Procedures: 09:23 Pacing: Patient was paced with an external pacer Using demand mode, Rate set at 60 in rn beats/min. Current set at 35 milliamps. Capture was noted. MDM: 02:59 Patient medically screened. tw4 04:38 Differential diagnosis: nephrolithiasis, pyelonephritis. Data reviewed: vital signs, tw4 nurses notes. Data interpreted: Pulse oximetry:. Counseling: I had a detailed discussion with the patient and/or guardian regarding: the historical points, exam findings, and any diagnostic results supporting the discharge/admit diagnosis. 06:41 ED course: Patient received complete instruction emergency room. Patient complained of tw4 abdominal pain in the right lower quadrant radiating to her back. However patient's heart rate on the monitor appeared to have 30 be heart block. EKG confirmed heart block. Patient remained hemodynamically stable. Patient had any complaints of any chest pain shortness of breath. Patient denies any previous cardiac history. Discussed the case with Dr. De Jesus from cardiology at 0 500 states that the patient would need to be transferred. Patient remained on the monitor with pacer pads in place just in case patient needed to be paced.. 06:46 Test interpretation: by ED physician or midlevel provider: ECG. tw4 08:59 ED course: Patient awaiting transfer for complete heart block. While waiting patient rn became more bradycardic with less conducted contractions. Patient given pain medicine and sedative. Will attempt to place patient and have EMS take with pacing. Explained this to patient and consented. Monitor seems to be recording P waves as contractions but palpable pulse is actually in the low 30s and patient complains of dizziness.. 02/02 02:42 Order name: Basic Metabolic Panel; Complete Time: 03:53 02/02 03:53 Interpretation: Normal except: GLUC 118; CL 108. 02/02 02:42 Order name: CBC with Diff; Complete Time: 03:53 02/02 03:54 Interpretation: Within normal limits. 02/02 02:42 Order name: Hepatic Function; Complete Time: 03:53 02/02 03:53 Interpretation: Normal except: AST 53; ALT 125; ALK 182; A/G 1.0; GLOB 3.7. 02/02 02:42 Order name: Lipase; Complete Time: 03:53 02/02 03:54 Interpretation: Within normal limits: LIP 90. 02/02 02:42 Order name: Magnesium; Complete Time: 03:53 02/02 03:53 Interpretation: Normal except: MG 2.6. 02/02 02:42 Order name: NT PRO-BNP; Complete Time: 03:53 02/02 03:53 Interpretation: Normal except: NT PRO-BNP 2232. 02/02 02:42 Order name: PT-INR; Complete Time: 03:53 02/02 03:53 Interpretation: Normal except: PT 13.3. 02/02 02:42 Order name: Troponin (emerg Dept Use Only); Complete Time: 03:53 02/02 03:54 Interpretation: Within normal limits: TROPED < 0.02. tw4 02/02 02:42 Order name: XRAY Chest (1 view) tw4 02/02 05:29 Order name: SARS-COV-2 RT PCR; Complete Time: 09:00 EDMS 02/02 02:42 Order name: IV Saline Lock; Complete Time: 03:56 tw4 02/02 02:42 Order name: Labs collected and sent; Complete Time: 03:56 tw4 02/02 02:42 Order name: Cardiac monitoring; Complete Time: 03:16 tw4 02/02 02:42 Order name: EKG - Nurse/Tech; Complete Time: 03:16 tw4 02/02 02:42 Order name: IV Saline Lock; Complete Time: 03:16 tw4 02/02 02:42 Order name: Labs collected and sent; Complete Time: 03:16 tw4 02/02 02:42 Order name: O2 Per Protocol; Complete Time: 03:16 tw4 02/02 02:42 Order name: O2 Sat Monitoring; Complete Time: 03:16 tw4 02/02 05:13 Order name: US Abdomen Limited tw4 EC:41 Rate is 30 beats/min. Rhythm is irregular. QRS [place] is Normal. [place] interval is normal. tw4 Clinical impression: Complete heart block. Interpreted by me. Reviewed by me. Administered Medications: 03:08 Drug: Atropine 1 mg Route: IVP; Site: right antecubital; ea 03:56 Follow up: Response: No adverse reaction ea 06:48 Not Given (Hemodynamic Parameters): hydrALAZINE 10 mg IVP once ea 08:55 Drug: fentaNYL (PF) 100 mcg Route: IVP; Site: left antecubital; jl7 09:27 Follow up: Response: No adverse reaction jl7 09:00 Drug: Ativan (LORazepam) 1 mg Route: IVP; Site: left antecubital; jl7 09:27 Follow up: Response: No adverse reaction jl7 Disposition Summary: 02/02/21 06:47 Transfer Ordered Transfer Location: [facility] tw4 Reason: Higher level of care tw4 Condition: Stable tw4 Problem: new tw4 Symptoms: are unchanged tw4 Accepting Physician: Dr. Mirian Salmon(02/02/21 09:31) jl7 Diagnosis - Atrioventricular block, complete tw4 - Other cholelithiasis without obstruction tw4 Forms: - Medication Reconciliation Form tw4 - SBAR form tw4 Critical care time excluding procedures: 09:23 Critical care time: Bedside Care: 30 minutes, Family Intervention: 5 minutes. Total rn time: 35 minutes Signatures: Dispatcher [employer] EDJayy Christianson RN RN em Nieto, Roman, MD MD rn Leal, Jahala, RN RN jl7 Apryl Ortega RN RN ea Wadley, Terrence, MD MD tw4 Janel Sandhu Corrections: (The following items were deleted from the chart) 02:36 02:35 Allergies: penciclovir; em em 02:36 02:35 PSHx: None; em em 02:43 02:43 BASIC METABOLIC PANEL+C.LAB.BRZ ordered. EDMS EDMS 02:43 02:43 CBC+H.LAB.BRZ ordered. EDMS EDMS 02:43 02:43 HEPATIC FUNCTION+C.LAB.BRZ ordered. EDMS EDMS 04:28 04:16 CORONAVIRUS+MR.LAB.BRZ ordered. EDMS EDMS 07:08 06:47 Dr antonio eb 09:31 07:08 Dr. Mirian thomas jl7
--- NOTE | 2021-02-02 06:48 | ER ---
Nurse's Notes [facility] Name: Laura Mix Age: 55 yrs Sex: Female : 1965 Arrival Date: 02/02/2021 Time: 01:35 Bed 5 Private MD: Diagnosis: Atrioventricular block, complete;Other cholelithiasis without obstruction Presentation: 02/02 02:33 Chief complaint: Patient states: upper abdominal pain for 10 days, reports N/V denies em diarrhea, dizziness and headache, denies chest pain. Coronavirus screen: Vaccine status: Patient reports receiving the 2nd dose of the covid vaccine. Ebola Screen: Patient negative for fever greater than or equal to 101.5 degrees Fahrenheit, and additional compatible Ebola Virus Disease symptoms Patient denies exposure to infectious person. Patient denies travel to an Ebola-affected area in the 21 days before illness onset. No symptoms or risks identified at this time. Initial Sepsis Screen: Does the patient meet any 2 criteria? No. Patient's initial sepsis screen is negative. Does the patient have a suspected source of infection? No. Patient's initial sepsis screen is negative. Risk Assessment: Do you want to hurt yourself or someone else? Patient reports no desire to harm self or others. Onset of symptoms was February 02, 2021. 02:33 Method Of Arrival: Wheelchair em 02:33 Acuity: GAETANO 2 em Historical: - Allergies: 02:35 PENICILLINS; em - PMHx: 02:35 None; em - PSHx: 02:35 Appendectomy; em - Immunization history:: Adult Immunizations up to date, Client reports receiving the 2nd dose of the Covid vaccine. - Social history:: Smoking status: Patient denies any tobacco usage or history of. Screenin:13 Abuse screen: Denies threats or abuse. Nutritional screening: No deficits noted. ea Tuberculosis screening: No symptoms or risk factors identified. Fall Risk IV access (20 points). Assessment: 03:14 General: Appears uncomfortable, Behavior is appropriate for age. Pain: Complains of ea pain in anterior aspect of left lateral abdomen, left upper quadrant and left lower quadrant. Neuro: Level of Consciousness is awake, alert, obeys commands, Oriented to person, place, time. Cardiovascular: Patient's skin is warm and dry. Respiratory: Airway is patent Respiratory effort is even, unlabored, Respiratory pattern is regular, symmetrical. Derm: Skin is pale, Skin temperature is warm. 04:00 Reassessment: Patient and/or family updated on plan of care and expected duration. Pain ea level reassessed. Patient is alert, oriented x 3, equal unlabored respirations, skin warm/dry/pink. 05:00 Reassessment: Patient and/or family updated on plan of care and expected duration. Pain ea level reassessed. Patient is alert, oriented x 3, equal unlabored respirations, skin warm/dry/pink. 06:08 Reassessment: Patient and/or family updated on plan of care and expected duration. Pain ea level reassessed. Awaiting on acceptance from facility. 07:00 Reassessment: Patient appears in no apparent distress at this time. Patient and/or jl7 family updated on plan of care and expected duration. Pain level reassessed. Patient is alert, oriented x 3, equal unlabored respirations, skin warm/dry/pink. Patient denies pain at this time. 08:00 Reassessment: Patient appears in no apparent distress at this time. Patient and/or jl7 family updated on plan of care and expected duration. Pain level reassessed. Patient is alert, oriented x 3, equal unlabored respirations, skin warm/dry/pink. 08:30 Reassessment: EMS at bedside to transport pt, requesting Dr. Medrano to assist in jl7 pacing pt, HR 34. 09:28 Reassessment: Pt paced at rate of 60 and 35 mAMP, pt transferred to EMS stretcher for jl7 transport to receiving facility. Vital Signs: 02:33 BP 120 / 64; Pulse 30; Resp 18; Temp 98.0; Pulse Ox 99% on R/A; em 02:44 Weight 74.21 kg (M); em 03:30 BP 199 / 68; Pulse 32; Resp 16; Pulse Ox 97% ; ea 04:00 BP 191 / 48; Pulse 32; Resp 17; Pulse Ox 99% ; ea 06:47 BP 152 / 50; Pulse 98; Resp 17; Pulse Ox 98% ; ea 07:30 BP 192 / 63; Pulse 44; Resp 14; Pulse Ox 100% ; Pain 0/10; jl7 08:45 BP 196 / 56; Pulse 34; Resp 14; Pulse Ox 100% ; jl7 ED Course: 01:35 Patient arrived in ED. wm 02:35 Triage completed. em 02:35 Arm band placed on. em 02:[address] MD is Attending Physician. tw4 03:13 Apryl Ortega, RN is Primary Nurse. ea 03:13 Patient has correct armband on for positive identification. Bed in low position. Call ea light in reach. quality assurance monitor body on. Pulse ox on. NIBP on. 03:13 Inserted saline lock: 20 gauge in right forearm, using aseptic technique. ea 03:13 Inserted saline lock: 20 gauge in left antecubital area, using aseptic technique. Blood ea collected. 03:16 XRAY Chest (1 view) In Process Unspecified. EDMS 04:18 Initiated transfer at [facility] with Ashli Lazo. Stated she would work on the tt3 request and call back. 04:56 Ashli Lazo called back and stated that they would have to deny the transfer request tt3 due to capacity. 05:[address] Khan (Category Development Analyst) phone number from Nisha Gaffney RN, Machine Striper tt3 and connected him with Dr. Lane for consultation regarding the patient. 06:00 Initiated transfer at [facility] with Carlota Rios. Call was connected with tt3 Dr. Lane for further consultation. 06:08 No provider procedures requiring assistance completed. ea 06:44 administrative approval given by Carlota Rios Rn/ patient has been accepted to [facility] CCU / Dr. Mirian Salmon has accepted the patient in transfer without conference with Dr. Lane/ Report to be called to [phone]. 08:59 Attending Physician role handed off by Joce Lane MD rn 08:59 Nolan Medrano MD is Attending Physician. rn 09:20 Patient placed on transcutaneous pacer. Capture obtained as noted by pacing spikes on jl7 campus monitor. Rate set at 60BPM. Pacer set at 35mA. Peripheral pulses felt with pacing. 09:27 Patient transferred, IV remains in place. intact, No redness/swelling at site. jl7 Administered Medications: 03:08 Drug: Atropine 1 mg Route: IVP; Site: right antecubital; ea 03:56 Follow up: Response: No adverse reaction ea 06:48 Not Given (Hemodynamic Parameters): hydrALAZINE 10 mg IVP once ea 08:55 Drug: fentaNYL (PF) 100 mcg Route: IVP; Site: left antecubital; jl7 09:27 Follow up: Response: No adverse reaction jl7 09:00 Drug: Ativan (LORazepam) 1 mg Route: IVP; Site: left antecubital; jl7 09:27 Follow up: Response: No adverse reaction jl7 Outcome: 06:47 ER care complete, transfer ordered by tw4 :29 Transferred by ground EMS to [facility], Transfer form completed. X-rays sent jl7 w/ patient. :29 Condition: stable 09:29 Discharge instructions given to patient, family, Instructed on the need for transfer, Demonstrated understanding of instructions. 09:31 Patient left the ED. jl7 Signatures: Dispatcher [employer] Jayy Arthur RN RN em Nieto, Roman, MD MD rn Leal, Jahala, RN RN jl7 Apryl Ortega RN RN ea Wadley, Terrence, MD MD tw4 Janel Sandhu Tyler tt3 Zenaida Murphy Corrections: (The following items were deleted from the chart) 02:36 02:35 Allergies: penciclovir; em em 02:36 02:35 PSHx: None; em em
[2021-02-02] MEDS ORDERED: LORazepam 2 MG/ML VIAL ONE ×2 (09:14→09:33)
[2021-02-02] MEDS ORDERED: FENTANYL CITR 100 MCG/2 ML ONE (09:15)
[2021-02-02 09:39] VITALS: TEMP 98
[2021-02-02 09:45] VITALS: O2SAT 100
[2021-02-02 09:46] VITALS: BP 196/56
--- NOTE | 2021-02-02 12:07 | RAD REPORT ---
EXAM DESCRIPTION: US - Abdomen Exam Limited - 02/02/2021 6:33 am CLINICAL HISTORY: ABD PAIN COMPARISON: No comparisons FINDINGS: The gallbladder demonstrates extensive cholelithiasis. No pericholecystic fluid or gallbla dder wall thickening. The common bile duct is normal measuring 4 mm. The liver demonstrates no findings of intrahepatic biliary dilatation. IMPRESSION: Extensive cholelithiasis.
--- NOTE | 2021-02-02 12:11 | RAD REPORT ---
EXAM DESCRIPTION: RAD - Chest Single View - 02/02/2021 3:17 am CLINICAL HISTORY: .. Chest pain. COMPARISON: No comparisons FINDINGS: Portable technique limits examination quality. Moderate bilateral pulmonary opacities may represent pulmonary edema or infection. The heart is mildl y prominent in size. Trace pleural effusions. IMPRESSION: Moderate CHF pattern is suspected. In the current clinical setting, COVID infection can' t be ruled out.
--- NOTE | 2021-02-04 10:08 | EKG ---
Test Date: 2021-02-02 Test Time: 02:51:26 Operations Dispatcher: TRUONG MEASUREMENT RESULTS: Intervals: Rate: 27 [place]: QRSD: 118 QT: 728 QTc: 487 [place]: P: 60 [place]: QRS: 102 T: 58 INTERPRETIVE STATEMENTS: Age and gender specific ECG analysis Sinus rhythm with complete heart block and Junctional bradycardia Incomplete right bundle branch block Right ventricular hypertrophy with repolarization abnormality ST elevation, consider inferior injury or acute infarct Prolonged QT ACUTE ND Consider right ventricular involvement in acute inferior infarct Abnormal ECG No previous ECG available for comparison Electronically Signed On 02-04-21 10:04:56 CDT by Joey Bond
== END 2021-02-02 09:31 | disposition short-term general hospital (02) ==
LOC: ER 01:34
DX: K80.80 Other cholelithiasis without obstruction (principal); I44.2 Atrioventricular block, complete; Z20.822 Contact with and (suspected) exposure to COVID-19; Z88.0 Allergy status to penicillin
CPT/HCPCS: 36415; 71045; 76705; 80048; 80076; 83690; 83735; 83880; 84484; 85025; 85610; 92953; 93005; 99285; J3010; U0003

== ENCOUNTER 2021-03-15 05:13 | Emergency (ER) | payer SELFPAY ==
[2021-03-15 05:59] LABS: Absolute Lymphocytes (CBC) 1.3 K/uL (0.7-4.9); Basophils % 0.2 % (0-1.3); Hematocrit 39.8 % (36.0-45.0); Lymphocytes % 12.1 % (15.3-44.8); MPV 8.3 fL (7.6-11.3); RBC Red Blood Cell Count 4.82 M/uL (3.86-4.86)
[2021-03-15 06:06] LABS: Protime INR 1.53
[2021-03-15] MEDS ORDERED: MORPHINE 4 MG/ML SYR ONE (06:06)
[2021-03-15] MEDS ORDERED: ONDANSETRON 4 MG/2 ML VIAL ONE (06:06)
[2021-03-15 06:16] LABS: ALT/SGPT 67 U/L (12-78); AST/SGOT 48 U/L (15-37); Albumin 3.8 g/dL (3.4-5.0); Alkaline Phosphatase 140 U/L (45-117); BUN Blood Urea Nitrogen 14 mg/dL (7-18); Bicarbonate 27 mmol/L (21-32); Bilirubin Direct 0.1 mg/dL (0-0.2); Bilirubin Total 0.4 mg/dL (0.2-1.0); Glucose Level 136 mg/dL (74-106); Magnesium 2.4 mg/dL (1.8-2.4); NT PRO-BNP 103 pg/mL (<125); Potassium 3.9 mmol/L (3.5-5.1); Protein, Total 8.3 g/dL (6.4-8.2); Sodium Level 141 mmol/L (136-145); Troponin (Emerg Dept Use Only) < 0.02 ng/mL (0.0-0.045)
[2021-03-15 06:46] LABS: Lipase 71 U/L (73-393)
[2021-03-15] MEDS ORDERED: FAMOTIDINE 20 MG/2 ML VIAL IV ONE (06:51)
--- NOTE | 2021-03-15 07:39 | RAD REPORT ---
EXAM DESCRIPTION: US - Abdomen Exam Limited - 03/15/2021 7:14 am CLINICAL HISTORY: EPIGASTRIC PAIN COMPARISON: Abdomen Exam Limited dated 02/02/2021 FINDINGS: The gallbladder is distended with multiple calcified gallstones. There is a stone near the neck. The remainder of the gallbladder is full of sludge. No gallbladder wall thickening. No biliary ductal dilatation. No pericholecystic fluid. Hepatic steatosis. IMPRESSION: Cholelithiasis and sludge but no sonographic evidence of acute cholecystitis.
[2021-03-15] MEDS ORDERED: MAGNES/ALUMIN/SIMET 30ML UCUP ONE (08:07)
[2021-03-15] MEDS ORDERED: LIDOCAINE VISCOUS 2% SOLN 15 ML UDC ONE (08:07)
--- NOTE | 2021-03-15 08:39 | ER ---
Nurse's Notes [facility] Name: Laura Mix Age: 55 yrs Sex: Female : 1965 Arrival Date: 03/15/2021 Time: 05:17 Bed 5 Private MD: Diagnosis: Other cholelithiasis without obstruction;Cervicalgia Presentation: 03/15 05:32 Chief complaint: Patient states: States she was woken up at 0130 with left arm/shoulder wg pain, pain in her back between shoulder blades and epigastric pain and nausea. No vomiting or diarrhea, SOB, dizziness. Has a pacemaker. Coronavirus screen: Vaccine status: Patient reports receiving the 2nd dose of the covid vaccine. Date August 2020 Client denies travel out of the [place] in the last 14 days. Ebola Screen: Patient negative for fever greater than or equal to 101.5 degrees Fahrenheit, and additional compatible Ebola Virus Disease symptoms Patient denies exposure to infectious person. Patient denies travel to an Ebola-affected area in the 21 days before illness onset. No symptoms or risks identified at this time. Initial Sepsis Screen: Does the patient meet any 2 criteria? No. Patient's initial sepsis screen is negative. Does the patient have a suspected source of infection? No. Patient's initial sepsis screen is negative. Risk Assessment: Do you want to hurt yourself or someone else? Patient reports no desire to harm self or others. Onset of symptoms was March 15, 2021 at 01:30. 05:32 Method Of Arrival: Ambulatory 05:32 Acuity: GAETANO 2 Triage Assessment: 05:35 General: Appears distressed, uncomfortable, well groomed, well developed, Behavior is wg cooperative, appropriate for age. Pain: Complains of pain in Left Shoulder, Back, epigastric pain. Cardiovascular: Reports nausea, Denies diaphoresis, shortness of breath, vomiting, Rhythm is atrial pacer. Respiratory: No deficits noted. GI: Reports epigastric pain, gaseousness, nausea. Historical: - Allergies: 05:35 PENICILLINS; wg - Home Meds: 05:35 lisinopril 10 mg Oral tab 1 tab once daily [Active]; Xarelto 5mg tab oral 1 tab 2 times wg per day [Active]; - PSHx: 05:35 Appendectomy; wg - Immunization history:: Adult Immunizations up to date. - Social history:: Smoking status: unknown. Screenin:59 Abuse screen: Denies threats or abuse. Nutritional screening: No deficits noted. ll1 Tuberculosis screening: No symptoms or risk factors identified. Fall Risk IV access (20 points). Total Wesley Fall Scale indicates No Risk (0-24 pts). Assessment: 07:05 Reassessment: report received from corporate consultant RN. Patient care assumed.. ll1 08:00 Reassessment: No changes from previously documented assessment. Patient and/or family ll1 updated on plan of care and expected duration. Pain level reassessed. Patient is alert, oriented x 3, equal unlabored respirations, skin warm/dry/pink. 08:59 Reassessment: No changes from previously documented assessment. Patient and/or family ll1 updated on plan of care and expected duration. Pain level reassessed. Patient is alert, oriented x 3, equal unlabored respirations, skin warm/dry/pink. Patient states feeling better. Vital Signs: 05:32 BP 171 / 107; Pulse 104; Resp 18; Temp 99.2; Pulse Ox 98% on R/A; Weight 73.94 kg; wg Height 5 ft. 2 in. (157.48 cm); Pain 10/10; 05:48 BP 153 / 87; Pulse 85; Resp 25 S; Pulse Ox 95% on R/A; Pain 10/10; sj1 06:24 BP 137 / 70; Pulse 84; Resp 18; Pulse Ox 98% on R/A; df1 08:58 BP 149 / 70; Pulse 87; Resp 17; Pulse Ox 98% ; ll1 05:32 Body Mass Index 29.81 (73.94 kg, 157.48 cm) ED Course: 05:17 Patient arrived in ED. wm 05:33 Inserted saline lock: 20 gauge in right forearm, using aseptic technique. Blood sj1 collected. 05:35 Michelle Ash is Primary Nurse. df1 05:35 Triage completed. 05:35 Arm band placed on left wrist. EKG completed in triage. Results shown to MD. 05:38 Jameel Carrasco MD is Attending Physician. 7 05:46 Troponin (Emerg Dept Use Only) Sent. sj1 05:46 NT PRO-BNP Sent. sj1 05:46 Liver (Hepatic) Function Sent. sj1 05:46 Magnesium Sent. sj1 05:46 Basic Metabolic Panel Sent. sj1 05:46 CBC with Automated Diff Sent. sj1 05:46 Basic Metabolic Panel Sent. sj1 05:46 CBC with Diff Sent. sj1 05:46 LFT's Sent. sj1 05:46 Magnesium Sent. sj1 05:46 NT PRO-BNP Sent. sj1 05:46 Troponin (emerg Dept Use Only) Sent. sj1 06:02 XRAY Chest (1 view) In Process Unspecified. EDMS 06:12 Salbador Best PA is PHCP. cp 06:15 Lipase Sent. sj1 07:00 US Abdomen Limited Sent. sj1 07:00 Patient has correct armband on for positive identification. Bed in low position. Call ll1 light in reach. Side rails up X 1. Pulse ox on. NIBP on. 07:12 Primary Nurse role handed off by Michelle Ash ll1 07:12 Yeimy Morocho, RN is Primary Nurse. ll1 07:14 US Abdomen Limited In Process Unspecified. EDMS 08:37 Gerardo Berumen MD is Referral Physician. cp 08:46 Tracey Joyce MD is Attending Physician. cp 08:59 No provider procedures requiring assistance completed. IV discontinued, intact, ll1 bleeding controlled, No redness/swelling at site. Pressure dressing applied. Administered Medications: 05:50 Drug: Zofran (Ondansetron) 4 mg Route: IVP; Site: right forearm; sj1 06:15 Follow up: Response: No adverse reaction; Pain is decreased sj1 05:50 Drug: morphine 4 mg Route: IVP; Site: right forearm; sj1 06:14 Follow up: Response: No adverse reaction; Pain is decreased sj1 06:29 Drug: Pepcid (famotidine) 20 mg Route: IVP; Site: right forearm; sj1 08:38 Follow up: Response: No adverse reaction ll1 07:55 Drug: GI Cocktail without - (Maalox Suspension 30 ml, Lidocaine Liquid 2 % 15 ll1 ml) Route: PO; 08:38 Follow up: Response: No adverse reaction ll1 Outcome: 08:38 Discharge ordered by . cp 08:59 Discharged to home via wheelchair. ll1 08:59 Condition: stable 08:59 Discharge instructions given to patient, Instructed on discharge instructions, follow up and referral plans. no drinking with medication, no driving heavy equipment, medication usage, Demonstrated understanding of instructions, follow-up care, medications, Prescriptions given X 3. 09:00 Patient left the ED. ll1 Signatures: Dispatcher [employer] EDMS Salbador Best PA PA cp Lewis, Lynsay, RN RN ll1 Jameel Carrasco MD MD [facility] Zenaida Murphy Liam, RN wg Furlich, Dawn df1 Ashanti Austin RN RN sj1
--- NOTE | 2021-03-15 08:39 | EDPHYS ---
Physician Documentation [facility] Name: Laura Mix Age: 55 yrs Sex: Female : 1965 Arrival Date: 03/15/2021 Time: 05:17 Bed 5 Private MD: ED Physician Tracey Joyce HPI: 03/15 06:19 This 55 yrs old Female presents to ER via Ambulatory with complaints of cp Epigastric Pain. 06:19 The patient presents with abdominal pain in the epigastric area. Onset: The cp symptoms/episode began/occurred this morning, awoke patient from sleep. 06:19 Associated signs and symptoms: Pertinent positives: chest pain, nausea, neck pain, cp Pertinent negatives: constipation, diarrhea, fever, shortness of breath, vomiting. 06:19 The symptoms are described as constant. cp Historical: - Allergies: 05:35 PENICILLINS; wg - Home Meds: 05:35 lisinopril 10 mg Oral tab 1 tab once daily [Active]; Xarelto 5mg tab oral 1 tab 2 times wg per day [Active]; - PSHx: 05:35 Appendectomy; wg - Immunization history:: Adult Immunizations up to date. - Social history:: Smoking status: unknown. ROS: 06:30 Abdomen/GI: Positive for abdominal pain, of the epigastric area, Negative for vomiting, cp diarrhea, constipation. 06:30 Constitutional: Negative for fever. cp 06:30 Cardiovascular: Positive for chest pain. 06:30 Eyes: Negative for injury, pain, redness, and discharge. cp 06:30 Neck: Positive for pain with movement, pain at rest. cp 06:30 Respiratory: Negative for cough, shortness of breath, wheezing. 06:30 Back: Positive for radiated pain. 06:30 Neuro: Negative for altered mental status, headache, weakness. 06:30 All other systems are negative. Exam: 06:32 ECG was reviewed by the Attending Physician. cp 06:35 Constitutional: The patient appears in no acute distress, alert, awake, cp non-diaphoretic, non-toxic, well developed, well nourished, uncomfortable. 06:35 Head/Face: Normocephalic, atraumatic. cp 06:35 Eyes: Periorbital structures: appear normal, Conjunctiva: normal, no exudate, no injection, Sclera: no appreciated abnormality, Lids and lashes: appear normal, bilaterally. 06:35 ENT: External ear(s): are unremarkable, Nose: is normal, Mouth: Lips: moist, Oral mucosa: moist, Posterior pharynx: Airway: no evidence of obstruction, patent. 06:35 Neck: C-spine: vertebral tenderness, is not appreciated, crepitus, is not appreciated, ROM/movement: pain, that is mild, with flexion, limited range of motion, is not appreciated. 06:35 Chest/axilla: Inspection: normal, Palpation: is normal, no crepitus, no tenderness. 06:35 Cardiovascular: Rate: normal, Rhythm: regular, Edema: is not appreciated, JVD: is not appreciated. 06:35 Respiratory: the patient does not display signs of respiratory distress, Respirations: normal, no use of accessory muscles, no retractions, labored breathing, is not present, Breath sounds: are clear throughout, no decreased breath sounds, no stridor, no wheezing. 06:35 Abdomen/GI: Inspection: abdomen appears normal, Bowel sounds: active, all quadrants, Palpation: soft, in all quadrants, moderate abdominal tenderness, in the epigastric area, rebound tenderness, is not appreciated, involuntary guarding, is not appreciated. 06:35 Back: ROM is normal, CVA tenderness, is absent. 06:35 Neuro: Orientation: to person, place \T\ time. Mentation: is normal. Vital Signs: 05:32 BP 171 / 107; Pulse 104; Resp 18; Temp 99.2; Pulse Ox 98% on R/A; Weight 73.94 kg; wg Height 5 ft. 2 in. (157.48 cm); Pain 10/10; 05:48 BP 153 / 87; Pulse 85; Resp 25 S; Pulse Ox 95% on R/A; Pain 10/10; sj1 06:24 BP 137 / 70; Pulse 84; Resp 18; Pulse Ox 98% on R/A; df1 08:58 BP 149 / 70; Pulse 87; Resp 17; Pulse Ox 98% ; ll1 05:32 Body Mass Index 29.81 (73.94 kg, 157.48 cm) wg MDM: 06:00 Differential diagnosis: cholecystitis, Cholelithiasis, gastritis, gastroesophageal cp reflux disease, pancreatitis, Peptic Ulcer Disease, Perf. Duodenal Ulcer, Perf. Gastric Ulcer, Pyelonephritis, Ureterolithiasis. 06:19 Patient medically screened. cp 08:35 Data reviewed: vital signs, nurses notes, lab test result(s), EKG, radiologic studies, cp plain films, ultrasound. 08:35 Test interpretation: by ED physician or midlevel provider: ECG, plain radiologic cp studies. Counseling: I had a detailed discussion with the patient and/or guardian regarding: the historical points, exam findings, and any diagnostic results supporting the discharge/admit diagnosis, lab results, radiology results, the need for outpatient follow up, for definitive care, a general surgeon, to return to the emergency department if symptoms worsen or persist or if there are any questions or concerns that arise at home. Response to treatment: the patient's symptoms have markedly improved after treatment, and as a result, I will discharge patient. 03/15 05:34 Order name: Basic Metabolic Panel [facility] 03/15 05:34 Order name: CBC with Diff [facility] 03/15 05:34 Order name: LFT's [facility] 03/15 05:34 Order name: Magnesium [facility] 03/15 05:34 Order name: NT PRO-BNP [facility] 03/15 05:34 Order name: PT-INR; Complete Time: 06:45 [facility] 03/15 06:45 Interpretation: Normal except: PT 17.7. 03/15 05:34 Order name: Troponin (emerg Dept Use Only) [facility] 03/15 05:35 Order name: Basic Metabolic Panel; Complete Time: 06:59 EDMS 03/15 06:20 Interpretation: Normal except: GFR 85; GLUC 136. cp 03/15 05:35 Order name: CBC with Automated Diff; Complete Time: 06:20 EDMS 03/15 06:20 Interpretation: Normal except: MANDY% 83.9; LYM% 12.1; NEUT A 9.0. cp 03/15 05:35 Order name: Liver (Hepatic) Function; Complete Time: 06:59 EDMS 03/15 06:20 Interpretation: Normal except: AST 48; ALK 140; TP 8.3; GLOB 4.5; A/G 0.8. cp 03/15 05:35 Order name: Magnesium; Complete Time: 06:59 EDMS 03/15 05:35 Order name: NT PRO-BNP; Complete Time: 06:59 EDMS 03/15 05:35 Order name: Troponin (Emerg Dept Use Only); Complete Time: 06:59 EDMS 03/15 07:31 Interpretation: Reviewed. 03/15 06:14 Order name: Lipase cp 03/15 05:34 Order name: XRAY Chest (1 view) [facility] 03/15 05:34 Order name: EKG; Complete Time: 05:35 [facility] 03/15 05:34 Order name: Cardiac monitoring; Complete Time: 05:34 [facility] 03/15 05:34 Order name: EKG - Nurse/Tech; Complete Time: 05:34 [facility] 03/15 05:34 Order name: IV Saline Lock; Complete Time: 05:34 [facility] 03/15 05:34 Order name: Labs collected and sent; Complete Time: 05:34 [facility] 03/15 05:34 Order name: O2 Per Protocol; Complete Time: 05:34 [facility] 03/15 05:34 Order name: O2 Sat Monitoring; Complete Time: 05:34 [facility] 03/15 06:21 Order name: US Abdomen Limited; Complete Time: 07:48 03/15 07:49 Interpretation: Report reviewed. 03/15 06:39 Order name: Lipase; Complete Time: 06:59 EDMS 03/15 07:00 Interpretation: LIP 71; Reviewed. EC:32 Rate is 108 beats/min. Rhythm is regular, Paced. CA interval is normal. QRS interval is cp prolonged at 140 msec. QT interval is normal. T waves are Inverted in leads I, aVL. Interpreted by me. Reviewed by me. Administered Medications: 05:50 Drug: Zofran (Ondansetron) 4 mg Route: IVP; Site: right forearm; sj1 06:15 Follow up: Response: No adverse reaction; Pain is decreased sj1 05:50 Drug: morphine 4 mg Route: IVP; Site: right forearm; sj1 06:14 Follow up: Response: No adverse reaction; Pain is decreased sj1 06:29 Drug: Pepcid (famotidine) 20 mg Route: IVP; Site: right forearm; sj1 08:38 Follow up: Response: No adverse reaction ll1 07:55 Drug: GI Cocktail without - (Maalox Suspension 30 ml, Lidocaine Liquid 2 % 15 ll1 ml) Route: PO; 08:38 Follow up: Response: No adverse reaction ll1 Disposition: 17:32 Co-signature as Attending Physician, Tracey Joyce MD. ma2 Disposition Summary: 03/15/21 08:38 Discharge Ordered Location: Home cp Problem: new cp Symptoms: have improved cp Condition: Stable cp Diagnosis - Other cholelithiasis without obstruction cp - Cervicalgia cp Followup: cp - With: Gerardo Berumen MD - When: 2 - 3 days - Reason: cholelithiasis Discharge Instructions: - Discharge Summary Sheet cp - Musculoskeletal Pain cp - Cholelithiasis cp - Neck Exercises cp Forms: - Medication Reconciliation Form cp - Thank You Letter cp - Antibiotic Education cp - Prescription Opioid Use cp - Work release form eb Prescriptions: - Ibuprofen 800 mg Oral Tablet - take 1 tablet by ORAL route every 8 hours As needed take with food; 30 tablet; cp Refills: 0, Product Selection Permitted - Zofran 4 mg Oral Tablet - take 1 tablet by ORAL route every 12 hours As needed; 20 tablet; Refills: 0, cp Product Selection Permitted - Tramadol 50 mg Oral Tablet - take 1 tablet by ORAL route every 8 hours as needed; 12 tablet; Refills: 0, cp Product Selection Permitted Signatures: Dispatcher [employer] EDMS Salbador Best PA PA cp Tracey Joyce MD MD ma2 Yeimy Morocho RN RN ll1 Fer Dhaliwal RN wg Johnson, Sade, RN RN sj1 Corrections: (The following items were deleted from the chart) 06:39 06:15 Lipase ordered. EDMS EDMS
--- NOTE | 2021-03-15 08:43 | RAD REPORT ---
EXAM DESCRIPTION: RAD - Chest Single View - 03/15/2021 6:02 am CLINICAL HISTORY: CHEST PAIN COMPARISON: Chest Single View dated 02/02/2021; Abdomen Exam Limited dated 03/15/2021; Abdomen Exam L imited dated 02/02/2021 FINDINGS: Lines: Pacemaker. Lungs: Low lung volumes with basilar opacities. Pleural: Suspect at least a right pleural effusion. Cardiac: Cardiomegaly. Bones: No acute fractures. Other: IMPRESSION: Low lung volumes with basilar airspace disease that could reflect atelectasis and/or pne umonia. Difficult to exclude small effusions as well.
[2021-03-15 09:09] VITALS: TEMP 99.2
[2021-03-15 09:11] VITALS: O2SAT 98
[2021-03-15 09:13] VITALS: BP 149/70
== END 2021-03-15 09:00 | disposition home or self-care (01) ==
LOC: ER 05:13
DX: K80.20 Calculus of gallbladder without cholecystitis without obstruction (principal); M54.2 Cervicalgia; Z88.0 Allergy status to penicillin
CPT/HCPCS: 36415; 71045; 76705; 80048; 80076; 83690; 83735; 83880; 84484; 85025; 85610; 93005; 96374; 96375; 99284; J2405

== ENCOUNTER 2021-11-10 10:54 | Inpatient (IN) | payer SELFPAY ==
--- OUTSIDE RECORDS SUMMARY | 2021-11-10 11:05 | XMS REPORT | Continuity of Care Document ---
:1965 Author Organization [facility] t Address [address] [place] [address] Care Team Providers Name Role Phone SYSTEM, PCP NOT IN Primary Care Physician Unavailable MAXIM Attending Clinician Unavailable Jackie SHOOK Attending Clinician Unavailable JAYCOB Attending Clinician Unavailable Mile ANDERSEN Attending Clinician Unavailable Tequila MENDEZ Attending Clinician Unavailable JAYCOB Admitting Clinician Unavailable Payers Payer Name Policy Type Policy Number Effective Date Expiration Date S [place] MEDICAID [place] PENDING 2019 PENDING 00:00:00 Problems This patient has no known problems. Allergies, Adverse Reactions, Alerts Allergy Allergy Status Severity Reaction(s) Onset Inactive Treating Comm ents Source Name Type Date Date Clinician Penicill Allergy Active Rash 2020-05 Rash all [facility] ins to 0-04 over body Health substanc 00:00: e 00 NO KNOWN Drug Active [facility] ALLERGIE Class ity of S [facility] Social History Social Habit Start Date Stop Date Quantity Comments Source Exposure to Not sure [facility] SARS-CoV-2 (event) History SDMN [facility] Alcohol Std Drinks History [facility] Health Alcohol Binge History [facility] Health Alcohol Comment Alcohol intake 2021-07-08 2021-07-08 Lifetime [facility] 00:00:00 00:00:00 non-drinker (finding) History SDOH 2021-07-08 2021-07-08 1 [facility] Alcohol Frequency 00:00:00 00:00:00 Tobacco use and 2021-02-24 2021-02-24 Former smokeless [facility] exposure 00:00:00 00:00:00 tobacco user Sex Assigned At [birth year] [facility] 00:00:00 00:00:00 Smoking Status Start Date Stop Date Source Never smoked tobacco [facility] Medications Ordered Filled Start Stop Current Ordering Indication Dosage Frequency Signature Comments Components Source Medication Medication Date Date Medication? Clinician (SIG) Name Name ibuprofen Yes 800mg Q6H Take 800 [facility] 800 MG 2-15 mg by Health tablet 08:28: mouth 17 every 6 (six) hours if needed for mild pain. apixaban 2021- No 5mg Q.5D Take 5 mg UT (Eliquis) 5 2-15 02-15 by mouth 2 H ealth MG tablet 08:28: 00:00 (two) 17 :00 times a day. apixaban 2020-05 Yes [id number] 5mg Q.5D Take 1 UT (Eliquis) 5 2-07 tablet (5 Hea lth MG tablet 00:00: mg total) 00 by mouth 2 (two) times a day. apixaban 2020-05 Yes 5mg Q.5D Take 5 mg UT (Eliquis) 5 1-03 by mouth 2 He alth MG tablet 08:12: (two) 53 times a day. ibuprofen 2020-05 Yes 800mg Q6H Take 800 UT 800 MG 1-03 mg by Health tablet 08:12: mouth 53 every 6 (six) hours if needed for mild pain. apixaban 2020-05 Yes 5mg Q.5D Take 5 mg UT (Eliquis) 5 1-03 by mouth 2 He alth MG tablet 08:12: (two) 53 times a day. ibuprofen 2020-05 Yes 800mg Q6H Take 800 UT 800 MG 1-03 mg by Health tablet 08:12: mouth 53 every 6 (six) hours if needed for mild pain. lisinopril Yes 10mg QD Take 10 mg U T 5 MG tablet 9-15 by mouth 1 He alth 00:00: (one) time 00 each day with breakfast. lisinopril Yes 10mg QD Take 10 mg U T 5 MG tablet 9-15 by mouth 1 He alth 00:00: (one) time 00 each day with breakfast. lisinopril 2021-0 Yes 10mg QD Take 10 mg U T 5 MG tablet 9-15 by mouth 1 He alth 00:00: (one) time 00 each day with breakfast. lisinopril 0 Yes 10mg QD Take 10 mg U T 5 MG tablet 9-15 by mouth 1 He alth 00:00: (one) time 00 each day with breakfast. lisinopril 0 Yes 10mg QD Take 10 mg U T 5 MG tablet 9-15 by mouth 1 He alth 00:00: (one) time 00 each day with breakfast. Vital Signs Vital Name Observation Time Observation Value Comments Source Systolic blood pressure 2021-07-08 14:28:00 153 mm[Hg] [facility] Diastolic blood pressure 2021-07-08 14:28:00 85 mm[Hg] [facility] Heart rate 2021-07-08 14:28:00 84 /min [facility] Body height 2021-07-08 14:28:00 157.5 cm [facility] Body weight 2021-07-08 14:28:00 71.668 kg [facility] BMI 2021-07-08 14:28:00 28.90 kg/m2 [facility] Systolic blood pressure 2021-03-26 13:02:00 144 mm[Hg] [facility] Diastolic blood pressure 2021-03-26 13:02:00 76 mm[Hg] [facility] Heart rate 2021-03-26 13:02:00 66 /min [facility] Body height 2021-03-26 13:02:00 157.5 cm [facility] Body weight 2021-03-26 13:02:00 65.772 kg [facility] BMI 2021-03-26 13:02:00 26.52 kg/m2 [facility] Procedures Procedure Date / Time Performed Performing Clinician [facility] e ECG 12-LEAD 2021-07-08 14:17:00 Weston Gasca [facility] US UPPER EXTREMITY VEIN 2021-02-24 17:05:35 Weston Gasca [facility] UNILATERAL LEFT XR SHOULDER 2+ VIEWS LEFT 2021-02-24 14:32:12 Weston Gasca [facility] Encounters Start End Encounter Admission Attending Care Care Encounter Source Date/Time Date/Time Type Type Clinicians Facility Department ID 2021-07-08 Outpatient MAXIM [facility] [id number] [place] 08:53:00 [place] [facility] 2021-07-08 Outpatient [facility] [id number] [place] 08:52:26 Health 2021-03-26 Outpatient MAXIM, [facility] [id number] [place] 08:52:03 [place] [facility] 2021-07-08 2021-07-08 Office GEOVANNY Gasca 6400 [id number] [place] 08:15:00 08:53:[address] [id number] Health [id number] 2021-04-14 2021-04-14 Telephone GEOVANNY Gasca 6400 [id number] [place] 00:00:00 00:00:[address] [id number] Health [id number] 2021-03-26 2021-03-26 Office GEOVANNY Gasca 6400 [id number] [place] 07:54:05 08:52:[address] [id number] Health [id number] 1 2021-02-26 2021-02-26 Telephone GEOVANNY Gasca 6400 [id number] [place] 00:00:00 00:00:[address] [id number] Health [id number] 2021-02-24 2021-02-24 Emergency E SHOOK, [facility] [address] [facility] 12:16:00 18:22:00 DOMINIQUE 2021-02-24 2021-02-24 [facility] Vanessa EXT MSRDP [id number] [place] 00:00:00 00:00:00 [place] LOCATION [id number] H ealth [id number] 2021-02-02 2021-02-05 Inpatient U DHFRANCO, [facility] CAR [id number] [facility] 10:25:00 15:05:00 BENJI 2020-09-03 2020-09-03 Outpatient Amanda NATHALY [facility] [id number] Univers 11:10:00 11:01:26 NATALIA [facility] 2020-08-13 2020-08-13 Outpatient Amanda NATHALY, [facility] [id number] Univers 11:00:00 11:58:18 NATALIA [facility] 2019-11-13 2019-11-13 Outpatient Amanda ANDREA [facility] [id number] Univers 12:00:00 12:00:00 SENDIL [id number] [facility] 2019-11-13 2019-11-13 Outpatient Amanda ANDREA [facility] [id number] Univers 12:00:00 12:00:00 SENDIL [facility] 2019-11-13 2019-11-13 Emergency X [facility] ERT [id number] Univers 11:10:00 11:10:00 [facility] Results Test Description Test Time Test Comments Results Result Comments Source HEMOGLOBIN A1c 2021-10-10 04:38:35 Test Item Value Reference Range Interpretation Comme nts HEMOGLOBIN A1c (test code = 09667) 6.2 % 4.2-5.6 H VITAMIN D, 25 [id number] 04:24:09 Test Item Value Reference Range Interpretation Comments VITAMIN D, 25 OH 53 NG/ML SEE BELOW NOTE: 25-H YDROXYVITAMIN D (test code = 4958) ASSAY INC LUDES 25-HYDROXYVITAM IN D2 AND D3. METHOD OLOGY IS CHEMILUMINESCEN T IMMUNOASSAY. INTERPRE TIVE RANGES PEDIATRIC (<17 YEARS) . . . . . . . . . . . NG/ML 20-100A DULT: INSUFFICIENT . . . . . . . . . . . . . . N G/ML <20 SUBOPTI MAL . . . . . . . . . . . . . . . NG/ML 20-29 OPTIMAL . . . . . . . . . . . . . . . . . NG/ML 30-100 UNLESS OTHERW ISE INDICATED, ALL TESTING PERFORMED [facility] NICAL PATHOLOGY [facility] [employer]. [address] [place] [address] LABORATORY DIRE CTOR: Mile PARMAR. CLIA NUMBER [id number] CAP ACCREDITATION N O. [id number] TSH, THIRD [id number] 04:11:06 Test Item Value Reference Range Interpretation Comments TSH, THIRD GENERATION (test code 1.530 UIU/ML 0.400-4.100 = 2820) COMPREHENSIVE METABOLIC [id number] 03:05:20 Test Item Value Reference Range Interpretation Comments GLUCOSE (test code = 105 MG/DL 70-99 H 2216) BUN (test code = 14 MG/DL 6-20 2207) CREATININE (test 0.69 MG/DL 0.60-1.30 code = 2213) eGFR (2020 CKD-EPI) 101 >60 (test code = 62487) ML/MIN/1.73 CALC BUN/CREAT (test 20 RATIO 6-28 code = 2235) SODIUM (test code = 143 MEQ/L 966-796 0575) POTASSIUM (test code 4.7 MEQ/L 3.5-5.4 = 2227) CHLORIDE (test code 101 MEQ/L 95-107 = 2214) CARBON DIOXIDE (test 29 MEQ/L 19-31 code = 220) CALCIUM (test code = 9.8 MG/DL 8.5-10.5 2208) PROTEIN, TOTAL (test 7.5 G/DL 6.1-8.3 code = 2229) ALBUMIN (test code = 4.5 G/DL 3.5-5.2 2200) CALC GLOBULIN (test 3.0 G/DL 1.9-3.7 code = 2240) CALC A/G RATIO (test 1.5 RATIO 1.0-2.6 code = 2234) BILIRUBIN, TOTAL 0.5 MG/DL See_Comment [Automated message] (test code = 2207) The syste m which generated this result transmit charlie reference range : <=1.2. The refe rence range was not u sed to interpret th is result as normal/abnormal . ALKALINE PHOSPHATASE 100 U/L 40-136 (test code = 2204) AST (test code = 28 U/L 9-40 2217) ALT (test code = 45 U/L 5-40 H 2218) LIPID [id number] 03:05:20 Test Item Value Reference Range Interpretation Comments CHOLESTEROL (test 237 MG/DL <200 H code = 2210) TRIGLYCERIDES (test 160 MG/DL <150 H code = 2232) HDL CHOLESTEROL (test 66 MG/DL >39 code = 2220) CALC LDL CHOL (test 141 MG/DL <100 H NOTE: C ALCULATED LDL code = 2237) IS BASED ON JEFF-BRAVO METHOD WHICHINCLUDES ADJUSTABLE TRIGLYCERIDE:VL DL CHOLESTEROL RAT IO.THIS FACTOR VARIES B Y MEASURED TRIGLY CERIDE AND NON-HDLCHOL ESTEROL CONCENTRATIONS WITH INCREASED CALCU LATED LDL SEENIN HIGH ER TRIGLYCERIDE OR LOWER NON-HDL SPECIME NS. FOR MOREINFORMATION , SEE CLIENT ANNOUNCE MENT AT [email or web address] [email or web address] LDL/HDL 2.14 RATIO <3.22 (test code = 2238) CBC W/AUTO DIFF WITH [id number] 02:43:54 Test Item Value Reference Range Interpretation Comments WBC (test code = 6.4 K/UL 3.5-11.0 1001) RBC (test code = 4.73 M/UL 3.80-5.40 1002) HEMOGLOBIN (test code 13.6 G/DL 11.5-15.5 = 1003) HEMATOCRIT (test code 38.8 % 34.0-45.0 = 1004) MCV (test code = 82.0 fL 80.0-99.0 1005) MCH (test code = 28.8 PG 25.0-33.0 1006) MCHC (test code = 35.1 G/DL 31.0-36.0 1007) RDW (test code = 13.0 % 11.5-15.0 1038) NEUTROPHILS (test 61.3 % code = 1008) LYMPHOCYTES (test 29.6 % code = 1010) MONOCYTES (test code 6.9 % = 1011) EOSINOPHILS (test 1.2 % code = 1012) BASOPHILS (test code 0.5 % = 1013) IMMATURE GRANULOCYTES 0.5 % (test code = 1036) NUCLEATED RBCS (test 0.0 /100 See_Comment [Autom ated code = 1065) WBC'S message] The sy stem which generated this result transmitted reference range : 0.0. The refere nce range was not u sed to interpret th is result as normal/abnormal . PLATELET COUNT (test 259 K/UL 130-400 code = 1015) ABSOLUTE NEUTROPHILS 3.93 K/UL 1.50-7.50 (test code = 1066) ABSOLUTE LYMPHOCYTES 1.90 K/UL 1.00-4.00 (test code = 1067) ABSOLUTE MONOCYTES 0.44 K/UL 0.20-1.00 (test code = 1068) ABSOLUTE EOSINOPHILS 0.08 K/UL 0.00-0.50 (test code = 1040) ABSOLUTE BASOPHILS 0.03 K/UL 0.00-0.20 (test code = 1069) ABS IMMATURE 0.03 K/UL 0.00-0.10 GRANULOCYTES (test code = 1020) ABS NUCLEATED RBCS 0.00 K/UL 0.00-0.11 (test code = 55604) HEMOGLOBIN [id number] 08:53:16 Test Item Value Reference Range Interpretation Comments HEMOGLOBIN A1c (test code = 58773) 6.1 % 4.2-5.6 H CBC W/AUTO DIFF WITH [id number] 07:50:18 Test Item Value Reference Range Interpretation Comments WBC (test code = 6.1 K/UL 3.5-11.0 1001) RBC (test code = 4.81 M/UL 3.80-5.40 1002) HEMOGLOBIN (test code 13.5 G/DL 11.5-15.5 = 1003) HEMATOCRIT (test code 38.9 % 34.0-45.0 = 1004) MCV (test code = 80.9 fL 80.0-99.0 1005) MCH (test code = 28.1 PG 25.0-33.0 1006) MCHC (test code = 34.7 G/DL 31.0-36.0 1007) RDW (test code = 14.5 % 11.5-15.0 1038) NEUTROPHILS (test 63.3 % code = 1008) LYMPHOCYTES (test 29.8 % code = 1010) MONOCYTES (test code 4.8 % = 1011) EOSINOPHILS (test 1.3 % code = 1012) BASOPHILS (test code 0.5 % = 1013) IMMATURE GRANULOCYTES 0.3 % (test code = 1036) NUCLEATED RBCS (test 0.0 /100 See_Comment [Autom ated code = 1065) WBC'S message] The sy stem which generated this result transmitted reference range : 0.0. The refere nce range was not u sed to interpret th is result as normal/abnormal . PLATELET COUNT (test 261 K/UL 130-400 code = 1015) ABSOLUTE NEUTROPHILS 3.84 K/UL 1.50-7.50 (test code = 1066) ABSOLUTE LYMPHOCYTES 1.81 K/UL 1.00-4.00 (test code = 1067) ABSOLUTE MONOCYTES 0.29 K/UL 0.20-1.00 (test code = 1068) ABSOLUTE EOSINOPHILS 0.08 K/UL 0.00-0.50 (test code = 1040) ABSOLUTE BASOPHILS 0.03 K/UL 0.00-0.20 (test code = 1069) ABS IMMATURE 0.02 K/UL 0.00-0.10 GRANULOCYTES (test code = 1020) ABS NUCLEATED RBCS 0.00 K/UL 0.00-0.11 (test code = 66993) TSH, THIRD [id number] 06:32:11 Test Item Value Reference Range Interpretation Comments TSH, THIRD GENERATION (test code 1.240 UIU/ML 0.400-4.100 = 2821) COMPREHENSIVE METABOLIC [id number] 05:50:20 Test Item Value Reference Range Interpretation Comments GLUCOSE (test code = 92 MG/DL 70-99 2216) BUN (test code = 13 MG/DL 11-10) CREATININE (test 0.61 MG/DL 0.60-1.30 code = 2214) eGFR (2020 CKD-EPI) 104 >60 (test code = 77164) ML/MIN/1.73 CALC BUN/CREAT (test 21 RATIO 6-28 code = 2235) SODIUM (test code = 144 MEQ/L 017-718 1110) POTASSIUM (test code 3.7 MEQ/L 3.5-5.4 = 2227) CHLORIDE (test code 105 MEQ/L 95-107 = 2214) CARBON DIOXIDE (test 26 MEQ/L 19-31 code = 220) CALCIUM (test code = 9.2 MG/DL 8.5-10.5 2208) PROTEIN, TOTAL (test 7.3 G/DL 6.1-8.3 code = 222) ALBUMIN (test code = 4.3 G/DL 3.5-5.2 2200) CALC GLOBULIN (test 3.0 G/DL 1.9-3.7 code = 2240) CALC A/G RATIO (test 1.4 RATIO 1.0-2.6 code = 2234) BILIRUBIN, TOTAL 0.4 MG/DL See_Comment [Automated message] (test code = 2207) The syste m which generated this result transmit charlie reference range : <=1.2. The refe rence range was not u sed to interpret th is result as normal/abnormal . ALKALINE PHOSPHATASE 105 U/L 40-136 (test code = 2203) AST (test code = 31 U/L 9-40 2217) ALT (test code = 40 U/L 5-40 2218) LIPID [id number] 05:50:20 Test Item Value Reference Range Interpretation Comments CHOLESTEROL (test 291 MG/DL <200 H code = 2210) TRIGLYCERIDES (test 210 MG/DL <150 H code = 2232) HDL CHOLESTEROL (test 70 MG/DL >39 code = 2220) CALC LDL CHOL (test 181 MG/DL <100 H NOTE: C ALCULATED LDL code = 2237) IS BASED ON JEFF-BRAVO METHOD WHICHINCLUDES ADJUSTABLE TRIGLYCERIDE:VL DL CHOLESTEROL RAT IO.THIS FACTOR VARIES B Y MEASURED TRIGLY CERIDE AND NON-HDLCHOL ESTEROL CONCENTRATIONS WITH INCREASED CALCU LATED LDL SEENIN HIGH ER TRIGLYCERIDE OR LOWER NON-HDL SPECIME NS. FOR MOREINFORMATION , SEE CLIENT ANNOUNCE MENT AT [email or web address] [email or web address] LDL/HDL 2.59 RATIO <3.22 (test code = 2237) VITAMIN D, 25 [id number] 05:47:59 Test Item Value Reference Range Interpretation Comments VITAMIN D, 25 OH 10 NG/ML SEE BELOW L NOTE: 25-H YDROXYVITAMIN D (test code = 4958) ASSAY INC LUDES 25-HYDROXYVITAM IN D2 AND D3. METHOD OLOGY IS CHEMILUMINESCEN T IMMUNOASSAY. INTERPRE TIVE RANGES PEDIATRIC (<17 YEARS) . . . . . . . . . . . NG/ML 20-100A DULT: INSUFFICIENT . . . . . . . . . . . . . . N G/ML <20 SUBOPTI MAL . . . . . . . . . . . . . . . NG/ML 20-29 OPTIMAL . . . . . . . . . . . . . . . . . NG/ML 30-100 UNLESS OTHERW ISE INDICATED, ALL TESTING PERFORMED [facility] NICAL PATHOLOGY LABOR [email or web address] [address] [place] [id number] LABORATORY DIRE CTOR: Mile PARMAR. CLIA NUMBER [id number] [facility] ACCREDITATION N O. [id number] ECG 12 [id number] 14:17:00 Test Item Value Reference Range Interpretation Comments Lab Interpretation (test code = Normal 96946-0) [facility]
[2021-11-10 11:35] LABS: Absolute Lymphocytes (CBC) 1.8 K/uL (0.7-4.9); Hematocrit 39.5 % (36.0-45.0); Lymphocytes % 19.3 % (15.3-44.8); MPV 8.2 fL (7.6-11.3); RBC Red Blood Cell Count 4.71 M/uL (3.86-4.86)
[2021-11-10 11:56] LABS: Albumin 3.5 g/dL (3.4-5.0); Bilirubin Total 0.7 mg/dL (0.2-1.0); Potassium 3.7 mmol/L (3.5-5.1); Protein, Total 7.9 g/dL (6.4-8.2)
--- NOTE | 2021-11-10 12:29 | RAD REPORT ---
EXAM DESCRIPTION: US - Abdomen Exam Limited - 11/10/2021 12:10 pm CLINICAL HISTORY: ABD PAIN COMPARISON: Abdomen Exam Limited dated 03/15/2021 FINDINGS: Multiple variably sized gallstones are present filling the lumen of a normal-sized gallbla dder. There is additional sludge identifiable. Wall thickening and edema are evident. No pericholecys tic fluid confirmed. No common duct stone or biliary tree dilatation identified. Patient demonstrated a positive sonographic Quigley's sign. IMPRESSION: Multiple gallstones and sludge filling the gallbladder with wall thickening. No biliary tree abnormality.
[2021-11-10] MEDS ORDERED: MORPHINE 4 MG/ML SYR ONE (12:39)
[2021-11-10] MEDS ORDERED: ONDANSETRON 4 MG/2 ML VIAL ONE ×2 (12:39→16:05)
[2021-11-10] MEDS ORDERED: Levofloxacin 750mg IV 750 MG/150 ML BAG IV ONE (13:08)
[2021-11-10] MEDS ORDERED: NA CHLORIDE 0.9% 1,000 ML ONE (13:08)
--- NOTE | 2021-11-10 13:13 | RAD REPORT ---
EXAM DESCRIPTION: RAD - Chest Single View - 11/10/2021 1:06 pm CLINICAL HISTORY: PAIN COMPARISON: Chest Single View dated 03/15/2021; Chest Single View dated 02/02/2021 FINDINGS: Lines: Pacemaker. Lungs: No evidence of edema or pneumonia. Calcified nodule in the right mid lung. Pleural: No significant pleural effusions or pneumothorax. Cardiac: Cardiomegaly. Bones: No acute fractures. Other: IMPRESSION: No acute cardiopulmonary disease.
--- NOTE | 2021-11-10 14:47 | EDPHYS ---
Physician Documentation [facility] Name: Laura Mix Age: 56 yrs Sex: Female : 1965 Arrival Date: 11/10/2021 Time: 10:56 Bed 25 Private MD: ED Physician Salbador Sahu HPI: 11/10 14:39 This 56 yrs old Female presents to ER via Ambulatory with complaints of dale Abdominal Pain - right side. 14:39 The patient presents with abdominal pain in the upper abdomen, in the right upper dale quadrant. Onset: The symptoms/episode began/occurred 1 day(s) ago. The symptoms do not radiate. Associated signs and symptoms: none. The symptoms are described as constant, crampy. Modifying factors: The symptoms are alleviated by nothing, the symptoms are aggravated by food. Severity of pain: At its worst the pain was mild moderate in the emergency department the pain has improved mildly. The patient has experienced similar episodes in the past, multiple times. Historical: - Allergies: 11:20 PENICILLINS; aa5 - PMHx: 11:19 Hypertensive disorder; aa5 - PSHx: 11:19 Appendectomy; Pacemaker; aa5 - Immunization history:: Adult Immunizations unknown. - Social history:: Smoking status: Patient denies any tobacco usage or history of. - Family history:: not pertinent. ROS: 14:39 Constitutional: Negative for fever, chills, and weight loss, Eyes: Negative for injury, dale pain, redness, and discharge, ENT: Negative for injury, pain, and discharge, Neck: Negative for injury, pain, and swelling, Cardiovascular: Negative for chest pain, palpitations, and edema, Respiratory: Negative for shortness of breath, cough, wheezing, and pleuritic chest pain, Back: Negative for injury and pain, : Negative for injury, bleeding, discharge, and swelling, MS/Extremity: Negative for injury and deformity, Skin: Negative for injury, rash, and discoloration, Neuro: Negative for headache, weakness, numbness, tingling, and seizure, Psych: Negative for depression, anxiety, suicide ideation, homicidal ideation, and hallucinations, Allergy/Immunology: Negative for hives, rash, and allergies, Endocrine: Negative for neck swelling, polydipsia, polyuria, polyphagia, and marked weight changes, Hematologic/Lymphatic: Negative for swollen nodes, abnormal bleeding, and unusual bruising. 14:39 Abdomen/GI: Positive for abdominal pain, of the right upper quadrant. Exam: 14:39 Constitutional: This is a well developed, well nourished patient who is awake, alert, dale and in no acute distress. Head/Face: Normocephalic, atraumatic. Eyes: Pupils equal round and reactive to light, extra-ocular motions intact. Lids and lashes normal. Conjunctiva and sclera are non-icteric and not injected. Cornea within normal limits. Periorbital areas with no swelling, redness, or edema. ENT: Nares patent. No nasal discharge, no septal abnormalities noted. Tympanic membranes are normal and external auditory canals are clear. Oropharynx with no redness, swelling, or masses, exudates, or evidence of obstruction, uvula midline. Mucous membranes moist. Neck: Trachea midline, no thyromegaly or masses palpated, and no cervical lymphadenopathy. Supple, full range of motion without nuchal rigidity, or vertebral point tenderness. No Meningismus. Chest/axilla: Normal chest wall appearance and motion. Nontender with no deformity. No lesions are appreciated. Cardiovascular: Regular rate and rhythm with a normal S1 and S2. No gallops, murmurs, or rubs. Normal PMI, no JVD. No pulse deficits. Respiratory: Lungs have equal breath sounds bilaterally, clear to auscultation and percussion. No rales, rhonchi or wheezes noted. No increased work of breathing, no retractions or nasal flaring. Back: No spinal tenderness. No costovertebral tenderness. Full range of motion. Female : Normal external genitalia. Skin: Warm, dry with normal turgor. Normal color with no rashes, no lesions, and no evidence of cellulitis. MS/ Extremity: Pulses equal, no cyanosis. Neurovascular intact. Full, normal range of motion. Neuro: Awake and alert, GCS 15, oriented to person, place, time, and situation. Cranial nerves II-XII grossly intact. Motor strength 5/5 in all extremities. Sensory grossly intact. Cerebellar exam normal. Normal gait. Psych: Awake, alert, with orientation to person, place and time. Behavior, mood, and affect are within normal limits. 14:39 Abdomen/GI: Inspection: abdomen appears normal, Bowel sounds: normal, Palpation: moderate abdominal tenderness, in the epigastric area and right upper quadrant, Liver: no appreciated palpable abnormalities, Hernia: not appreciated. 15:21 ECG was reviewed by the Attending Physician. [facility] [place] Vital Signs: 11:17 BP 139 / 68; Pulse 96; Resp 18 S; Temp 99.4(TE); Pulse Ox 98% on R/A; Weight 72.57 kg aa5 (R); Height 5 ft. 0 in. (152.40 cm); 13:12 BP 116 / 57; Pulse 76; Resp 16; Pulse Ox 97% on R/A; iw 11:17 Body Mass Index 31.25 (72.57 kg, 152.40 cm) [facility] MDM: 11:21 Patient medically screened. [facility] [place] 14:43 Differential diagnosis: bowel obstruction, coronary artery disease, cholecystitis, dale Cholelithiasis, diverticulitis, gastritis, gastroesophageal reflux disease, non-specific abd pain, pancreatitis, Peptic Ulcer Disease, Peritonitis, Pyelonephritis, Ureterolithiasis, urinary tract infection. Data reviewed: vital signs, nurses notes, lab test result(s), EKG, radiologic studies, plain films, ultrasound. Data interpreted: engine monitor: rate is 76 beats/min, rhythm is regular, Pulse oximetry: on room air is 97 %. Test interpretation: by ED physician or midlevel provider: ECG, plain radiologic studies. Counseling: I had a detailed discussion with the patient and/or guardian regarding: the historical points, exam findings, and any diagnostic results supporting the discharge/admit diagnosis, lab results, radiology results, the need for further work-up and treatment in the hospital. 11/10 11:20 Order name: CBC with Diff; Complete Time: 12:42 [facility] 11/10 11:20 Order name: CMP; Complete Time: 12:42 [facility] 11/10 11:20 Order name: Lipase; Complete Time: 12:42 [facility] 11/10 11:21 Order name: US Abdomen Limited; Complete Time: 12:42 [facility] [place] 11/10 12:40 Order name: SARS-COV-2 RT PCR (Document "Date of Onset" if Symptomatic); Complete Time: iw 19:47 11/10 12:43 Order name: Chest Single View XRAY; Complete Time: 14:10 [facility] [place] 11/10 11:20 Order name: IV Saline Lock; Complete Time: 11:26 [facility] 11/10 11:20 Order name: Labs collected and sent; Complete Time: [facility] 11/10 12:43 Order name: EKG; Complete Time: : [facility] [place] 11/10 12:43 Order name: EKG - Nurse/Tech; Complete Time: 15:22 [facility] [place] EC: Rate is 76 beats/min. Rhythm is regular. QRS [place] is Normal. MT interval is normal. QRS dale interval is normal. QT interval is normal. No Q waves. T waves are Normal. No ST changes noted. Clinical impression: No evidence of ischemia. Interpreted by me. Reviewed by me. Administered Medications: 12:41 Drug: morphine 4 mg Route: IVP; Infused Over: 4 mins; Site: right antecubital; iw 13:00 Follow up: Response: No adverse reaction; Pain is decreased iw 12:41 Drug: Zofran (Ondansetron) 4 mg Route: IVP; Site: right antecubital; iw 13:00 Follow up: Response: No adverse reaction iw 13:11 Drug: levofloxacin 750 mg Volume: 150 ml; Route: IVPB; Infused Over: 90 mins; Site: iw right antecubital; 14:40 Follow up: IV Status: Completed infusion iw 13:11 Drug: NS 0.9% 1000 ml Route: IV; Rate: 1 bolus; Site: right antecubital; iw 14:15 Follow up: IV Status: Completed infusion iw Disposition Summary: 11/10/21 14:46 Hospitalization Ordered Hospitalization Status: Observation dale Provider: Jon Anaya cha Location: Telemetry/MedSur (observation) dale Condition: Stable dale Problem: new dale Symptoms: have improved dale Bed/Room Type: Standard dale Room Assignment: dale Diagnosis - Epigastric abdominal tenderness dale - Cholecystitis, unspecified dale - Acute cholecystitis dale - Other cholelithiasis without obstruction dale Forms: - Medication Reconciliation Form dale - SBAR form dale Signatures: Dispatcher [employer] Salbador Worley MD MD cha Williams, Irene RN Ana M Kang RN RN aa5 Sal Montoya, SLEEVER-C SLEEVER-Cla1
--- NOTE | 2021-11-10 14:47 | ER ---
Nurse's Notes [facility] Name: Laura Mix Age: 56 yrs Sex: Female : 1965 Arrival Date: 11/10/2021 Time: 10:56 Bed 25 Private MD: Diagnosis: Epigastric abdominal tenderness;Cholecystitis, unspecified;Acute cholecystitis;Other cholelithiasis without obstruction Presentation: 11/10 11:17 Chief complaint: Patient states: RUQ pain and nausea/vomiting yesterday. Pt reports aa5 she's had this pain before and they reported it was her gallbladder. Coronavirus screen: nausea, vomiting. Ebola Screen: No symptoms or risks identified at this time. Initial Sepsis Screen: Does the patient meet any 2 criteria? No. Patient's initial sepsis screen is negative. Does the patient have a suspected source of infection? No. Patient's initial sepsis screen is negative. Risk Assessment: Do you want to hurt yourself or someone else? Patient reports no desire to harm self or others. Onset of symptoms was October 2021. 11:17 Acuity: GAETANO 3 aa5 11:17 Method Of Arrival: Ambulatory aa5 Historical: - Allergies: 11:20 PENICILLINS; aa5 - PMHx: 11:19 Hypertensive disorder; aa5 - PSHx: 11:19 Appendectomy; Pacemaker; aa5 - Immunization history:: Adult Immunizations unknown. - Social history:: Smoking status: Patient denies any tobacco usage or history of. - Family history:: not pertinent. Vital Signs: 11:17 BP 139 / 68; Pulse 96; Resp 18 S; Temp 99.4(TE); Pulse Ox 98% on R/A; Weight 72.57 kg aa5 (R); Height 5 ft. 0 in. (152.40 cm); 13:12 BP 116 / 57; Pulse 76; Resp 16; Pulse Ox 97% on R/A; iw 11:17 Body Mass Index 31.25 (72.57 kg, 152.40 cm) aa5 ED Course: 10:56 Patient arrived in ED. am2 11:17 Arm band placed on. aa5 11:18 Triage completed. aa5 11:21 Salbador Sahu MD is Attending Physician. [facility] 11:26 Initial lab(s) drawn, by me, sent to lab. Inserted saline lock: 20 gauge in right aa5 antecubital area, using aseptic technique. Blood collected. 12:12 US Abdomen Limited In Process Unspecified. EDMS 12:30 Jossie Rios, RN is Primary Nurse. iw 13:07 Chest Single View XRAY In Process Unspecified. EDMS 14:45 Jon Anaya is Hospitalizing Provider. dale Administered Medications: 12:41 Drug: morphine 4 mg Route: IVP; Infused Over: 4 mins; Site: right antecubital; iw 13:00 Follow up: Response: No adverse reaction; Pain is decreased iw 12:41 Drug: Zofran (Ondansetron) 4 mg Route: IVP; Site: right antecubital; iw 13:00 Follow up: Response: No adverse reaction iw 13:11 Drug: levofloxacin 750 mg Volume: 150 ml; Route: IVPB; Infused Over: 90 mins; Site: iw right antecubital; 14:40 Follow up: IV Status: Completed infusion iw 13:11 Drug: NS 0.9% 1000 ml Route: IV; Rate: 1 bolus; Site: right antecubital; iw 14:15 Follow up: IV Status: Completed infusion iw Outcome: 14:46 Decision to Hospitalize by Provider. [facility] 15:24 Patient left the ED. Signatures: Dispatcher [employer] Salbador Worley MD MD cha Williams, Irene, RN RN Ana M Palmer RN RN aaLise Lazcano am2
[2021-11-10] MEDS ORDERED: Ringers Lactate 1,000 ML IV ONE (15:41)
[2021-11-10] MEDS ORDERED: ACETAMINOPHEN 500 MG TAB ONE (15:44)
[2021-11-10] MEDS ORDERED: CELECOXIB 100 MG CAPSULE ONE (15:45)
--- NOTE | 2021-11-10 15:57 | P.CNS ---
Date of Consult: 11/10/21 Reason for consult: Abdominal pain History of present illness: Patient is a 56-year-old female with multiple medical problems comes in with 4-day history of biliary colic. Patient states, via a tool and machine maintainer, that she has had postprandial epigastric and right upper quadrant pain radiating to the back associated with nausea and vomiting. Patient also has bloating, belching and heartburn. Patient's had symptoms like this for the past few years. Patient denies sore throat, runny nose, cough, headaches, dizziness, chest pain, fever or chills. Patient denies diarrhea, constipation, blood in her stool, dysuria or hematuria. Review of systems: Otherwise unremarkable Past medical history: Hypertension and coronary artery disease Past surgical history: Appendectomy and pacemaker Allergies: Penicillin and clindamycin Social history: Denies smoking or drinking alcohol Family history: Heart disease Vital signs: Stable, afebrile Physical exam: Awake, alert and oriented x3 Head and neck exam: Cranial nerves II through XII grossly within normal limits, no neck masses, no JVD, throat clear, neck supple and no evidence of icterus. Chest: Clear Heart: S1-S2 Abdomen: Soft, nondistended, positive bowel sounds, right upper quadrant tenderness with rebound and Quigley's sign Extremity: Neurovascular intact and nontender Neuro: Nonfocal Diagnostic data: White count is normal with left shift, ultrasound showed thickened gallbladder wall consistent with cholecystitis and cholelithiasis Assessment: Acute and chronic cholecystitis and cholelithiasis Plan/recommendation: Admit, n.p.o., IV fluid, IV antibiotics and to the OR for laparoscopic cholecystectomy possible open. Patient and family understand risks, benefits and alternatives and agreed to procedure. CC:
[2021-11-10] MEDS ORDERED: propofoL 200 MG/20 ML VIAL IV ONE (16:04)
[2021-11-10] MEDS ORDERED: FENTANYL CITR 100 MCG/2 ML ONE (16:04)
[2021-11-10] MEDS ORDERED: LIDOCAINE 2% MPF 5 ML VIAL ONE (16:04)
[2021-11-10] MEDS ORDERED: ROCURONIUM 50 MG/5 ML VIAL IV ONE (16:04)
[2021-11-10] MEDS ORDERED: KETOROLAC 30 MG/ML INJ ONE (16:05)
[2021-11-10] MEDS ORDERED: dexAMETHasone 10 MG/ML VIAL ONE (16:05)
[2021-11-10] MEDS ORDERED: GLYCOPYRROLATE 0.2 MG/ML SYR ONE (16:56)
[2021-11-10] MEDS ORDERED: NEOSTIGMINE 1 MG/ML -10 ML VIAL ONE (16:56)
[2021-11-10] MEDS ORDERED: ONDANSETRON 4 MG/2 ML VIAL IV PRN (17:47)
--- NOTE | 2021-11-10 17:54 | P.OP ---
Date of Service: 11/10/21 Preop diagnosis: Acute and chronic cholecystitis and cholelithiasis Postop diagnosis: Same Procedure performed: Laparoscopic cholecystectomy Surgeon: Felipe Lugo MD Freelance Operator: Nava SANDOVAL Estimated blood loss: Minimal Specimen: Gallbladder Findings: As above Anesthesia: General Complications: None Drains: SETH #10 flat Fluids and blood products: Nonapplicable Disposition: Recovery room Operative note: Patient brought to the OR and placed in the supine position. General anesthesia begun. Patient prepped and draped in the usual sterile fashion. Marcaine 0.5% infiltrated locally. Then, 15 blade was used to make a 1 cm supraumbilical midline incision. Subcutaneous tissue was divided and fascia was identified and divided. Then, #1 Vicryl stay suture was placed into the fascia. Peritoneal cavity was entered with sharp and blunt dissection. 12 mm trocar was placed into the peritoneal cavity under direct vision. Pneumoperitoneum was established. Then, 3 5 mm trochars were placed. 1 trocar was placed in the epigastric region just to the right mid midline and 2 trochars were placed in the right subcostal region. Laparoscopy revealed a very large and distended gallbladder. The gallbladder was aspirated of very thick bile. Then, the fundus was grasped and retracted superiorly. Infundibulum was identified and there was a lot of inflammation. This was dissected with sharp and blunt dissection. Then, the infundibulum was identified and retracted inferolaterally. Cystic duct and cystic artery were clearly identified with blunt dissection. Clips were placed and both structures divided. Cautery was utilized to remove the gallbladder from the liver bed. Gallbladder was retrieved through the umbilicus via Endo Catch bag. The fascial incision had to be extended to remove this large gallbladder with a large stone. Subsequently pneumoperitoneum was reestablished. Right upper quadrant was irrigated thoroughly. Effluent was clear and there was no evidence of any bleeding or bile leakage appreciated. There was however a lot of inflammatory tissue with oozing noted. This was controlled with cautery and Surgicel was placed on the liver bed. This area was observed and there was no further evidence of oozing or bleeding noted. As a precaution, Toño-Goldstein drain #10 flat was placed in the gallbladder fossa. The drain was secured with 3-0 nylon. Then all trochars were removed under direct vision. The fascial defect was closed with a running #1 Vicryl suture. Subcutaneous wounds were irrigated and bleeding controlled with cautery. 3-0 chromic was used to reapproximate subcutaneous tissue. Mukund were used to close skin. Sterile dressing applied. Patient was awake joseph and taken to recovery room in good general condition. CC:
[2021-11-10] MEDS ORDERED: Levofloxacin 750mg IV 750 MG/150 ML BAG IV SCH ×2 (18:00→19:00)
[2021-11-10] MEDS: NA CHLORIDE 0.9% 1,000 ML IV SCH (18:00)
[2021-11-10] MEDS: HYDROMORPHONE HCL 1 MG/ML INJ IV PRN ×2 (18:01→18:15)
[2021-11-10] MEDS ORDERED: MORPHINE 2 MG/ML SYR IV PRN (18:20)
--- NOTE | 2021-11-10 20:01 | P.HP ---
Certification for Inpatient Patient admitted to: Observation With expected LOS: <2 Midnights Patient will require the following post-hospital care: None Practitioner: I am a practitioner with admitting privileges, knowledge of patient current condition, hospital course, and medical plan of care. Services: Services provided to patient in accordance with Admission requirements found in Title 42 Section 412.3 of the Code of Federal Regulations Patient History Date of Service: 11/10/21 Reason for admission: Acute cholecystitis History of Present Illness: 56-year-old female with history of hypertension, bradycardia now with pacemaker presents the emergency department for epigastric pain she reports pain is similar to previous episode she has had with her gallbladder. Her labs were unremarkable ultrasound was significant for cholelithiasis with sludge and gallbladder wall thickening. General surgery was consulted who brought patient to the operating room performed a cholecystectomy. Patient ports she is on one blood pressure medication she can recall the name, reports that she had a pacemaker placed about a year ago for a very low pulse. Patient history comfortable at this time resting in the bed will admit under observation for the evening. Allergies clindamycin Allergy (Verified 11/15/19 14:23) Hives/Rash Penicillins Allergy (Verified 11/10/21 18:16) Hives/Rash Home Medications: Apixaban [Eliquis] 5 mg PO DAILY 11/10/21 Losartan Potassium 25 mg PO DAILY 11/10/21 Pravastatin Sodium 10 mg PO BEDTIME 11/10/21 - Past Medical/Surgical History Diabetic: No -: Hypertension -: Bradycardiawith pacemaker -: appy -: Pacemaker Psychosocial/ Personal History: Patient lives at home with her family - Family History Father Notes: denies any family hx of DM2 or heart disease - Social History Smoking Status: Never smoker Alcohol use: No CD- Drugs: No Caffeine use: Yes Place of Residence: Home Review of Systems 10-point ROS is otherwise unremarkable Gastrointestinal: Nausea, Abdominal Pain Physical Examination - Vital Signs Temperature: 97.3 F Blood Pressure: 130/47 Pulse: 72 Respirations: 16 - Physical Exam General: Alert, In no apparent distress, Oriented x3 HEENT: Atraumatic, PERRLA, Mucous membr. moist/pink, EOMI, Sclerae nonicteric Neck: Supple, 2+ carotid pulse no bruit, No LAD, Without JVD or thyroid abnormality Respiratory: Clear to auscultation bilaterally, Normal air movement Cardiovascular: Regular rate/rhythm, Normal S1 S2 Gastrointestinal: Tenderness (Mild generalized abdominal tenderness) Musculoskeletal: No tenderness Integumentary: No rashes Neurological: Normal speech, Normal strength at 5/5 x4 extr, Normal tone, Normal affect - Studies Laboratory Data (last 24 hrs) 11/10/21 11:26: Sodium 139, Potassium 3.7, BUN 12, Creatinine 0.66, Glucose 112 H, Total Bilirubin 0.7, AST 26, ALT 45, Alkaline Phosphatase 115, Lipase 65 L 11/10/21 11:26: WBC 9.2, Hgb 13.4, Hct 39.5, Plt Count 316 Assessment and Plan - Plan Assessment: Acute cholecystitis Hypertension History of bradycardia with pacemaker Plan: Acute cholecystitis: Status post laparoscopic cholecystectomy, order for clear liquid diet advance as tolerated in place by surgery, pain meds in place. Hypertension: Obtain and continue home medication as appropriate History of bradycardia with pacemaker: Stable. DVT PPX: Per surgery Code status: Full Discharge Plan: Home Plan to discharge in: 24 Hours - Advance Directives Does patient have a Living Will: No Does patient have a Durable POA for Healthcare: No - Code Status/Comfort Care Code Status Assessed: Yes (Full) Critical Care: No Time Spent Managing Pts Care (In Minutes): 50
[2021-11-11] MEDS: METRONIDAZOLE 500mg IVPB 500 MG/100 ML BAG IV SCH ×3 (00:43→16:10)
[2021-11-11 03:24] VITALS: BMI 31.2
[2021-11-11 03:57] LABS: Hematocrit 35.1 % (36.0-45.0); MCV 83.3 fL (80-100); RBC Red Blood Cell Count 4.21 M/uL (3.86-4.86)
[2021-11-11 03:58] LABS: Absolute Lymphocytes (CBC) 0.7 K/uL (0.7-4.9); Lymphocytes % 7.6 % (15.3-44.8); MPV 8.5 fL (7.6-11.3)
[2021-11-11 04:16] LABS: Magnesium 2.3 mg/dL (1.8-2.4); Phosphorus 2.3 mg/dL (2.5-4.9); Potassium 4.1 mmol/L (3.5-5.1)
[2021-11-11 04:31] LABS: Blood Morphology Comment NOT SEEN (NOT SEEN); Platelet Estimate ADEQ
[2021-11-11] MEDS: NA CHLORIDE 0.9% 1,000 ML IV SCH ×2 (05:14→16:10)
--- NOTE | 2021-11-11 07:01 | P.PN ---
Date of Service: 11/11/21 Subjective: minimal nausea, ambulated to bathroom, urinating without issue no flatus, no BM pain ok SETH drain in place ROS: 10 point ROS as noted above, otherwise negative Physical exam GEN: Alert, oriented, NAD HEENT: Normal conjunctiva, sclera anicteric CV: Regular rate and rhythm, no edema Pulm: Non-labored respirations on 1L NC ABD: Soft, mild RUQ tenderness, surgical dressings in place c/d/i, SETH drain with serosanguineous output, Neuro: Normal speech, normal affect Problem List Acute cholecystitis s/p laparoscopic cholecystectomy with SETH drain placement Hypertension History of bradycardia, s/p pacemaker s/p lap vish 11/10 very inflamed and large gallbladder SETH drain placed pain meds as needed diet advanced as tolerated anticipate dc home tomorrow encourage ambulation, IS Code: full Dispo: home, anticipate tomorrow Time Spent Managing Pts Care (In Minutes): 35
--- NOTE | 2021-11-11 07:44 | P.PN ---
Date of Service: 11/11/21 Subjective: Patient is awake and alert. Patient has minimal pain and feels better since the surgery. She has had sips of clear liquids with no problems. She has ambulated to the bathroom. Objective: Vital signs are stable, afebrile Laboratory data reviewed: White count is normal but she has a left shift Abdomen: Soft, nondistended, positive bowel sounds, minimal incisional tenderness Dressings are clean dry and intact Assessment: Status post laparoscopic cholecystectomy Plan: Clinically, the patient is slowly improving. However, because of the extensive inflammation found during surgery, I would recommend another day in the hospital for IV antibiotics. Encourage patient to ambulate, use incentive spirometry and continue with SCDs. CC:
[2021-11-11] MEDS: ENOXAPARIN 40 MG/0.4 ML SQ SCH (09:20)
[2021-11-11] MEDS: POTASS/SODIUM PHOSPHATE 1 PKT POWD.PACK PO SCH ×3 (09:20→12:47)
[2021-11-11] MEDS: HYDROCODONE/APAP 7.5/325 MG TAB PO PRN (09:46)
[2021-11-11] MEDS ORDERED: Levofloxacin 750mg IV 750 MG/150 ML BAG IV SCH (13:00)
[2021-11-11 17:59] LABS: Urine Appearance Clear (Clear); Urine Bilirubin Negative (Negative); Urine Blood Negative (Negative); Urine Color Yellow (Yellow); Urine Glucose Negative (Negative); Urine Protein Negative (Negative); Urine Specific Gravity >=1.030 (1.005-1.030)
[2021-11-11 18:15] LABS: Urine Microscopic Reflex NO UMIC
[2021-11-12] MEDS: METRONIDAZOLE 500mg IVPB 500 MG/100 ML BAG IV SCH ×2 (00:39→09:00)
[2021-11-12] MEDS: NA CHLORIDE 0.9% 1,000 ML IV SCH ×2 (00:40→10:00)
[2021-11-12] MEDS: HYDROCODONE/APAP 7.5/325 MG TAB PO PRN (00:49)
[2021-11-12 02:03] VITALS: O2SAT 97
[2021-11-12 04:50] LABS: Phosphorus 2.2 mg/dL (2.5-4.9); Potassium 3.7 mmol/L (3.5-5.1)
[2021-11-12] MEDS: POTASS/SODIUM PHOSPHATE 1 PKT POWD.PACK PO SCH ×3 (05:50→08:00)
--- NOTE | 2021-11-12 07:25 | EKG ---
Test Date: 2021-11-10 Test Time: 15:01:30 Aircraft Riveter: VANCE MEASUREMENT RESULTS: Intervals: Rate: 76 IN: 182 QRSD: 150 QT: 414 QTc: 465 [place]: P: 45 IN: 182 QRS: -53 T: 60 INTERPRETIVE STATEMENTS: Atrial-sensed ventricular-paced rhythm Abnormal ECG Compared to ECG 03/15/2021 05:28:49 No significant changes Electronically Signed On 11-12-21 07:19:35 CDT by Joey Bond
[2021-11-12] MEDS: ENOXAPARIN 40 MG/0.4 ML SQ SCH (09:00)
[2021-11-12] MEDS ORDERED: POTASSIUM CL SA 10 MEQ TAB PO ONE (09:00)
--- NOTE | 2021-11-12 09:01 | P.PN ---
Date of Service: 11/12/21 Subjective: Patient is tolerating diet and pain is controlled on oral pain medication. Patient is ambulating. Objective: Vital signs are stable, afebrile Abdomen: Soft, nondistended, positive bowel sounds, minimal incisional tenderness Dressings are clean dry and intact Assessment: Status post laparoscopic cholecystectomy Plan: Patient cleared from surgical standpoint for discharge. Discharge instructions given to patient. Cipro and Tylenol 3 have been called into patient's pharmacy. Patient to follow-up with me in 1 week. CC:
[2021-11-12 09:03] VITALS: BP 135/63; TEMP 97.4
--- NOTE | 2021-11-12 20:22 | P.DS ---
Admission Date: 11/10/21 Discharge Date: 11/12/21 Disposition: ROUTINE DISCHARGE Discharge Condition: GOOD Reason for Admission: Acute cholecystitis Consultations: General Surgery - Dr. Lugo Brief History of Present Illness: 56yo F, PMH: HTN, bradycardia s/p pacemaker Presents to ED with epigastric pain, found to have acute cholecystitis. Hospital Course: Problem List Acute cholecystitis s/p laparoscopic cholecystectomy with SETH drain placement Hypertension History of bradycardia, s/p pacemaker h/o provoked DVT, on eliquis Patient was taken to the OR by Dr. Lugo and underwent laparoscopic cholecystectomy. She was noted to have a significantly inflamed and enlarged gallbladder. A SETH drain was placed. She was continued on antibiotics and had improvement of her symptoms with an uncomplicated post-operative course. She was deemed stable for discharge home. Ciprofloxacin and Tylenol 3 called into patient's pharmacy Record out put from SETH drain. Follow up with Dr. Lugo in 1 week. Vital Signs/Physical Exam: Temp Pulse Resp BP Pulse Ox 97.4 F 69 16 135/63 96 11/12/21 08:00 11/12/21 08:00 11/12/21 08:00 11/12/21 08:00 11/12/21 08:00 General: Alert, In no apparent distress HEENT: Mucous membr. moist/pink, Sclerae nonicteric Respiratory: Clear to auscultation bilaterally Cardiovascular: No edema, Regular rate/rhythm Gastrointestinal: Soft and benign, Non-distended, Tenderness (mild, at surgical incisions) Musculoskeletal: No contractures, No tenderness Integumentary: No rashes, No breakdown Neurological: Normal speech, Normal affect Laboratory Data at Discharge: WBC 8.7 K/uL (4.3-10.9) 11/11/21 03:46 Hgb 11.9 g/dL (12.0-15.0) L 11/11/21 03:46 Hct 35.1 % (36.0-45.0) L 11/11/21 03:46 Plt Count 283 K/uL (152-406) 11/11/21 03:46 Sodium 142 mmol/L (136-145) 11/12/21 03:57 Potassium 3.7 mmol/L (3.5-5.1) 11/12/21 03:57 BUN 11 mg/dL (7-18) 11/12/21 03:57 Creatinine 0.57 mg/dL (0.55-1.3) 11/12/21 03:57 Glucose 107 mg/dL (74-106) H 11/12/21 03:57 Phosphorus 2.2 mg/dL (2.5-4.9) L 11/12/21 03:57 Magnesium 2.3 mg/dL (1.8-2.4) 11/11/21 03:46 Total Bilirubin 0.7 mg/dL (0.2-1.0) 11/10/21 11:26 AST 26 U/L (15-37) 11/10/21 11:26 ALT 45 U/L (12-78) 11/10/21 11:26 Alkaline Phosphatase 115 U/L (45-117) 11/10/21 11:26 Lipase 65 U/L (73-393) L 11/10/21 11:26 Home Medications: Apixaban [Eliquis] 5 mg PO DAILY 11/10/21 Losartan Potassium 25 mg PO DAILY 11/10/21 Pravastatin Sodium 10 mg PO BEDTIME 11/10/21 Physician Discharge Instructions: Remove dressing in a.m. and shower Keep wound clean and dry Dry gauze or Band-Aid to wound daily Ciprofloxacin and Tylenol 3 called into patient's pharmacy Incentive spirometry as ordered Record out put from SETH drain. Diet: AHA Activity: No lifting more than 10 lbs Followup: Felipe Lugo MD [ACTIVE - CAN ADMIT] - 1 Week (Call to schedule appointment.) Adelina Archer, RN [Primary Care Provider] - (Call to schedule appointment.) Time spent managing pt's care (in minutes): 40
== END 2021-11-12 11:33 | disposition home or self-care (01) | DRG 419 ==
LOC: ER 10:54 → 2ND 18:07 → OBSVTOIN 11-11 07:46
PROVIDERS: ADMIT Internal Medicine; ATTEND Internal Medicine
PROC: 0FT44ZZ Resection of Gallbladder, Percutaneous Endoscopic Approach (ICD-10-PCS; principal; 2021-11-10 15:45)
DX: K80.12 Calculus of gallbladder with acute and chronic cholecystitis without obstruction (principal); I10 Essential (primary) hypertension; Z95.0 Presence of cardiac pacemaker; Z86.718 Personal history of other venous thrombosis and embolism; Z79.01 Long term (current) use of anticoagulants; Z88.0 Allergy status to penicillin; Z20.822 Contact with and (suspected) exposure to COVID-19
CPT/HCPCS: 36415; 71045; 76705; 80048; 80053; 81003; 83690; 83735; 84100; 85025; 88304; 93005; 94010; 96365; 96375; 99284; G0378; J1100; J1170; J1650; J2405; J2704; J2710; J3010; J3490; J7030; J7120; U0003